=== PATIENT | female | born 1945 | race Caucasian/White ===

== ENCOUNTER 2017-04-24 05:01 | Emergency (ER) | payer MEDICARE, OTHER ==
[~2017-04-24] VITALS: Ht 162.6 cm; Wt 74.8 kg
[~2017-04-24 05:01] MED LIST: ADVAIR 250-501 EACH PO; ALBUTEROL SULF8.5 GM PO; ASPIRIN325 MG PO; CARDIZEM30 MG PO; CEFUROXIME250 MG PO; CILOSTAZOL100 MG PO; CRESTOR20 MG PO; GABAPENTIN300 MG PO; GABAPENTIN600 MG PO; GLIPIZIDE-METF1 EAC2 PO; GLIPIZIDE5 MG PO; HYDROCHLOROTHIA25 MG PO; LANTUS100 UNITS/ SC; LIPITOR20 MG PO; LISINOPRIL40 MG PO; METOPROLOL TART25 MG PO; PENICILLIN V P250 MG PO; PLAVIX75 MG PO; PROCARDIA XL30 MG PO; SINGULAIR10 MG PO; TYLENOL WITH C1 EACH PO; VITAMIN D1000 UNIT PO; XOPENEX1.25 MG/3 HHN
[2017-04-24] MEDS ORDERED: DEXTROSE 50% SYRINGE 50 ML IV ONE (05:17)
[2017-04-24] MEDS ORDERED: DEXTROSE 10% 1,000 ML IV ONE (06:15)
[2017-04-24] MEDS ORDERED: OCTREOTIDE ACETATE 0.05 MG/ML AMP SQ SCH ×2 (06:15→12:00)
[2017-04-24] MEDS ORDERED: OCTREOTIDE ACETATE 1 ML ONE (06:22)
[2017-04-24 06:54] LABS: BASOPHILS % 0.4 % (0.0-1.0); EOSINOPHILS # (AUTO) 0.1 (0.0-0.4); EOSINOPHILS % 0.8 % (0.0-6.0); HEMATOCRIT 39.3 % (34.2-44.1); LYMPHOCYTES # (AUTO) 1.6 (1.0-3.2); LYMPHOCYTES % 13.8 % (18.0-39.1); MEAN CORPUSCULAR HGB CONC 30.5 g/dL (31-35); MEAN CORPUSCULAR VOLUME 88.5 fL (81-99); MONOCYTES # (AUTO) 0.8 (0.2-0.8); NEUTROPHILS # (AUTO) 8.7 (2.1-6.9); NEUTROPHILS % 77.4 % (38.7-80.0); PLATELET COUNT 210 x10e3/uL (140-360); RED BLOOD COUNT 4.44 x10e6/uL (3.6-5.1); RED CELL DISTRIBUTION WIDTH 14.6 % (11.7-14.4)
[2017-04-24 06:58] LABS: INR 0.93; PROTHROMBIN TIME 12.9 seconds (11.9-14.5)
[2017-04-24 06:59] LABS: PARTIAL THROMBOPLASTIN TIME 34.2 seconds (23.8-35.5)
[2017-04-24 07:04] LABS: ALBUMIN 3.2 g/dL (3.5-5.0); ALBUMIN/GLOBULIN RATIO 0.8 (0.8-2.0); ANION GAP 13.2 mmol/L (8-16); CALCIUM 8.6 mg/dL (8.4-10.2); CREATININE, SERUM 0.95 mg/dL (0.57-1.11); MAGNESIUM 1.8 MG/DL (1.3-2.1); POTASSIUM 4.2 mmol/L (3.5-5.1)
[2017-04-24] MEDS ORDERED: SODIUM CHLORIDE 0.9% 1000ML 1,000 ML IV ONE (07:15)
[2017-04-24 07:23] LABS: CREATINE KINASE MB 2.3 ng/mL (0.00-5.00); THYROID STIMULATING HORMONE 2.063 uIU/mL (0.350-4.940)
--- NOTE | 2017-04-24 07:32 | Diagnostic Imaging Report ---
Exam: Head CT without contrast History: Altered mental status, hypoglycemia Comparison studies: Head CT 03/25/2015 Technique: Axial images were obtained from the skull base to the vertex. Coronal and sagittal images reconstructed from the axial data. Intravenous contrast: None Findings: Scalp: No abnormalities. Bones: No fractures, blastic or lytic lesions. Sac: Frontal and parietal sulci are mildly prominent. Ventricles: Normal in size and configuration. No hydrocephalus. Extra-axial spaces: No masses, no fluid collection. Parenchyma: No mass, acute hemorrhage or acute or chronic cortical vascular insults. A few scattered hypodensities in the supratentorial white matter are nonspecific but most compatible with chronic small vessel ischemic changes. Sellar/suprasellar region: No abnormalities. Craniocervical junction: Patent foramen magnum. No Chiari one malformation. Incidental findings: Atherosclerotic calcifications in the carotid siphons and intradural vertebral arteries. Small nonspecific frothy secretions within a partially imaged posterior right ethmoid air cell. Mild nonspecific mucosal thickening in the left sphenoid sinus. IMPRESSION: 1. No acute intracranial abnormalities. 2. Mild chronic microvascular ischemic changes. 3. No significant changes from the previous head CT of 03/25/2015. Signed by: Dr. Luis Higgins M.D. on 04/24/2017 7:28 AM
[2017-04-24 07:59] LABS: BILIRUBIN,URINE NEGATIVE (NEGATIVE); KETONES,URINE NEGATIVE (NEGATIVE); LEUKOCYTE ESTERASE ,URINE NEGATIVE (NEGATIVE); NITRITE,URINE NEGATIVE (NEGATIVE); URINE UROBILINOGEN 0.2 mg/dL (0.2 - 1)
[2017-04-24 08:04] LABS: CLARITY,URINE SL CLOUDY (CLEAR); COLOR,URINE YELLOW (YELLOW); PROTEIN,URINE DIPSTICK 1+ (NEGATIVE)
--- NOTE | 2017-04-24 08:08 | Diagnostic Imaging Report ---
PROCEDURE: CHEST SINGLE (PORTABLE) COMPARISON: [facility], DX, CHEST SINGLE (NOT PORTABLE), 07/19/2016, 11:49. INDICATIONS: AMS; LOW BLOOD SUGAR FINDINGS: LUNGS: No consolidations or edema. PLEURA: No effusions or pneumothorax. HEART \T\ MEDIASTINUM: The heart is within normal size-limits. There is calcification within the aorta. BONES \T\ SOFT TISSUES: No acute findings. Sternotomy wire sutures are intact. [place] screw overlying the right humeral head. CONCLUSION: No acute thoracic abnormality. Jovan Jose D.O. Dictated by: Jovan Jose D.O. on 04/24/2017 at 8:17 Electronically approved by: Jovan Jose D.O. on 04/24/2017 at 8:17
[2017-04-24 08:39] LABS: EPITHELIAL CELLS,URINE RARE /LPF
[2017-04-24] MEDS ORDERED: SODIUM CHLORIDE 0.9% 1000ML 1,000 ML IV SCH (08:48)
[2017-04-24] MEDS ORDERED: DEXTROSE 50% SYRINGE 50 ML IV PRN (09:00)
[2017-04-24] MEDS ORDERED: CEFTRIAXONE SOD 1 GM VIAL IV SCH ×2 (09:00)
[2017-04-24] MEDS: CEFTRIAXONE SOD 1 GM VIAL IV SCH ×2 (11:22→12:00)
[2017-04-24] MEDS ORDERED: INSULIN REGULAR, HUMAN 100 UNIT/1 ML 3ML VIAL SQ SCH (11:30)
[2017-04-24] MEDS ORDERED: ACETAMINOPHEN 325 MG TAB PO PRN ×2 (11:30→11:45)
[2017-04-24] MEDS ORDERED: PEPCID20 MG PO (18:57)
[2017-04-24] MEDS ORDERED: REGLAN10 MG PO (18:57)
[2017-04-24] MEDS ORDERED: METOPROLOL TARTRATE 25 MG TAB PO SCH (19:00)
[2017-04-24 19:26] VITALS: BP 147/88
--- NOTE | 2017-04-24 20:40 | History and Physical ---
SHORTSTAY SUMMARY The patient goes to the [facility]. CHIEF COMPLAINT: 1. Decreased level of consciousness due to hypoglycemia. 2. Type 2 diabetes with hypoglycemia. 3. Hypertension complicated by coronary artery disease and congestive heart failure and chronic kidney disease. 4. Type 2 diabetes complicated by chronic kidney disease. 5. Urinary tract infection. DISCHARGE DIAGNOSES 1. Decreased level of consciousness due to hypoglycemia. 2. Type 2 diabetes with hypoglycemia. 3. Hypertension complicated by coronary artery disease and congestive heart failure and chronic kidney disease. 4. Type 2 diabetes complicated by chronic kidney disease. 5. Urinary tract infection. BRIEF HISTORY: Ms. Jacob is a 71-year-old lady who was brought in by EMS for altered level of consciousness because her his blood sugar was 38. She was given D50 which brought her sugar up into the 100/s, but had started to drop again and she was started on D5 water drip and her blood sugar was monitored q.1 hour. After the blood sugar had been above 250 for 2 consecutive hours, the D5 was discontinued. She continued to have blood sugar checks and her blood sugar remained stable through the rest of the day. REVIEW OF SYSTEMS: She denies fever, chills or weight loss. She denies chest pain or palpitations. She denies shortness of breath, wheezing or cough. Denies abdominal pain, although she does have some GERD symptoms and nausea and decreased appetite, possibly due to gastroparesis. She has dysuria, but denies flank pain. She denies rash or pruritus. She denies bleeding or bruising. Denies joint pain or swelling. She denies headache, vertigo or loss of consciousness. She denies depression, agitation, homicidal or suicide ideation. She has a chronic nonproductive cough from smoking. PAST MEDICAL HISTORY: Significant for longstanding hypertension, type 2 diabetes, coronary artery disease, congestive heart failure, chronic kidney disease. She had a CABG done in 1993. She also has a history of cholecystectomy, hysterectomy and appendectomy. REGULAR MEDICATIONS: Tylenol with codeine as needed. Albuterol inhaler as needed. Lipitor 80 mg at bedtime. Cilostazol 100 mg twice daily. Plavix 75 mg daily. Advair Diskus twice a day inhalation. Lantus insulin 20 units twice a day. Xopenex inhaler as needed. Metoprolol 25 mg twice a day. Singulair 10 mg at bedtime. Nifedipine XL 60 mg daily. Gabapentin 600 mg twice daily and glipizide/metformin 5/500 twice daily. ALLERGIES: NO KNOWN DRUG ALLERGIES. SOCIAL HISTORY: She is a current daily smoker. FAMILY HISTORY: Remarkable for hypertension, diabetes and heart disease. SOCIAL HISTORY: The patient is . Divehi is her primary language. She is a current daily smoker. She drinks very rarely. She does not use illegal drugs. She is generally independently functioning. PHYSICAL EXAM: PSYCHIATRIC: She is alert and oriented times 3 with normal mood and affect. CONSTITUTIONAL: She is moderately overweight. BMI of 28.31, but not obese. She is in no acute distress. VITAL SIGNS: Blood pressure 136/60. Pulse 97 and regular. Respiratory rate 22. O2 sat 99%. Temperature 98.6. HEENT: Head is atraumatic. Eyes are anicteric with clear conjunctivae. Ears and nares are without erythema or discharge. Oropharynx is clear. NECK: Is supple with no mass or thyromegaly. LYMPHATIC SYSTEM: She has no palpable cervical, axillary or inguinal adenopathy. CARDIOVASCULAR: Her heart has a regular rate and rhythm without murmur or extra heart sound. She has no carotid bruit. She has no peripheral edema. Has weak dorsal pedal pulses. RESPIRATORY: Her lungs revealed diminished breath sounds, coarse airway noise and expiratory wheezing. She has normal respiratory effort and a chronic, hacking, nonproductive cough. GASTROINTESTINAL: Abdomen is soft without organomegaly, masses or tenderness. Normal bowel sounds present. CUTANEOUS: His skin is warm and dry to touch with no rash or skin breakdown. MUSCULOSKELETAL: Joints are in normal alignment without erythema or swelling. She has no calf tenderness. NEUROLOGIC: Exam is nonfocal with intact cranial nerves and no motor or sensory deficits. DIAGNOSTIC STUDIES: Chest x-ray shows no acute disease. CT scan of brain shows no acute disease. Does show some mild chronic microvascular changes. UA is clear, partially treated apparently. Her lactic acid is 21.7 which is elevated. Chemistry shows normal electrolytes. CO2 24. Creatinine 0.95. BUN 18 for a normal GFR. Glucose was 38 on arrival. Subsequent glucoses 133, 132, 130, then 303, 264. The D5W was stopped and the last blood sugar was 160. She has been on low-dose sliding scale insulin for the last dose. Transaminases, bilirubin and alkaline phos are normal. CBC shows a white count 11.2 with 77.4 neutrophils, hemoglobin 12.0, hematocrit 38.3, platelet count 210,000. Coags are normal. IMPRESSION AND PLAN 1. Hypoglycemia, type 2 diabetes. The patient has not been checking her blood sugar regularly and continues to take Lantus insulin twice a day and has had poor appetite and p.o. intake lately due to what sounds like reflux and gastroparesis. The patient was instructed to check her sugar twice a day before Lantus injections and to not given any insulin if her blood sugar is less than 120. 2. Urinary tract infection. Patient has been on Levaquin which is not recommended by the CDC. Will switch to cefuroxime 500 mg twice daily. HOSPITAL COURSE: The patient was admitted for observation and she received D5 water until her low blood sugar stabilized. She was instructed on checking her blood sugar regularly and holding her insulin for sugars that are less than 120. She was discharged home to continue all of her regular home medications. She will be given cefuroxime 500 mg twice daily for the urinary tract infection to replace Levaquin, and she will be given Pepcid and Reglan 20 mg and 10 mg both twice a day before meals for gastroparesis and to improve her appetite. She can resume regular activity and follow up with her primary care physician within 2 weeks. Job#: [id number]
== END 2017-04-24 20:21 | disposition home or self-care (01) ==
LOC: ER 05:01 → UNDOADMIN 09:11 → ERHOLD 09:11
DX: E11.649 Type 2 diabetes mellitus with hypoglycemia without coma (principal); Z79.4 Long term (current) use of insulin; N39.0 Urinary tract infection, site not specified; I10 Essential (primary) hypertension
CPT/HCPCS: 36415; 70450; 71045; 80053; 81001; 82550; 82553; 82948; 83605; 83690; 83735; 84443; 84484; 85025; 85610; 85730; 87040; 87071; 87086; 87186; 87205; 93005; 96374; 99284; J0696; J2353; J2354; J7030; J7799

== ENCOUNTER 2018-11-10 14:11 | Inpatient (IN) | payer MEDICARE, OTHER ==
[~2018-11-10] VITALS: Ht 162.6 cm; Wt 74.8 kg
[~2018-11-10 14:11] MED LIST changes: +PEPCID20 MG PO; +REGLAN10 MG PO
--- OUTSIDE RECORDS SUMMARY | 2018-11-10 14:14 | XMS REPORT | Clinical Summary ---
Author Author SURI CinnaBid Organization [facility] [employer] [facility] Address Unknown Phone Unavailable Care Team Providers Care [employer]er Name Role Phone Peter Bob [place] PCP Allergies No Known Allergies Medications End Date Status Medication Sig Dispensed Refills Start Date Active atorvastatin (LIPITOR) 80 Take 80 mg by 0 MG tablet mouth daily. Active cholecalciferol, vitamin Take by 0 D3, 2,000 unit Cap mouth. Active clopidogrel (PLAVIX) 75 Take 75 mg by 0 mg tablet mouth daily. Active fluticasone-salmeterol Inhale 1 puff 0 (ADVAIR) 250-50 mcg/dose by mouth via diskus inhaler inhaler every 12 (twelve) hours. Active gabapentin (NEURONTIN) Take 600 mg 0 300 MG capsule by mouth 2 (two) times daily . Active glipiZIDE-metFORMIN Take 2 0 (METAGLIP) 5-500 mg per tablets by tablet mouth 2 (two) times daily before meals. Active montelukast (SINGULAIR) Take 10 mg by 0 10 mg tablet mouth nightly. Active insulin detemir U-100 Inject 20 0 (LEVEMIR) 100 unit/mL Units injection subcutaneousl y nightly. Active busPIRone (BUSPAR) 10 MG Take 10 mg by 0 tablet mouth daily . 07/03/2019 Active aspirin 81 MG EC tablet Take 1 tablet 0 (81 mg total) 9 by mouth daily. 07/03/2019 Active furosemide (LASIX) 40 MG Take 1 tablet 180 tablet 3 tablet (40 mg total) 9 by mouth 2 (two) times daily. 07/03/2019 Active lisinopril Take 1 tablet 90 tablet 3 (PRINIVIL,ZESTRIL) 5 MG (5 mg total) 9 tablet by mouth daily. Active metoprolol (LOPRESSOR) 25 Take 12.5 mg 0 MG tablet by mouth 2 (two) times daily. Active albuterol HFA (VENTOLIN Inhale 1 puff 0 HFA) 90 mcg/actuation by mouth via inhaler inhaler as needed for Wheezing. 06/30/2018 Discontinued ascorbic acid, vitamin C, Take 500 mg 0 (ASCORBIC ACID WITH LATISHA by mouth HIPS) 500 MG tablet daily. 07/02/2018 Discontinued aspirin 325 MG EC tablet Take 325 mg 0 by mouth daily. 07/02/2018 Discontinued cilostazol (PLETAL) 50 MG Take 50 mg by 0 tablet mouth 2 (two) times daily. 06/30/2018 Discontinued insulin glargine (LANTUS) Inject 20 0 100 unit/mL injection Units subcutaneousl y 2 (two) times daily Use as directed . 06/30/2018 Discontinued levalbuterol (XOPENEX) Take 1 ampule 0 1.25 mg/3 mL nebulizer by solution nebulization every 4 (four) hours as needed for Wheezing. 06/30/2018 Discontinued lidocaine (LIDODERM) 5 % Place 1 patch 0 patch onto the skin daily Remove & Discard patch within 12 hours or as directed by MD . 06/30/2018 Discontinued metoprolol (TOPROL-XL) 25 Take 25 mg by 0 MG 24 hr tablet mouth daily. 06/30/2018 Discontinued omega-3 fatty Take by 0 acids-vitamin E 1,000 mg mouth. Cap 07/02/2018 Discontinued gabapentin (NEURONTIN) Take 300 mg 0 300 MG capsule by mouth daily with lunch . 07/02/2018 Discontinued metoprolol (LOPRESSOR) 25 Take 25 mg by 0 MG tablet mouth 2 (two) times daily. 10/26/2018 Discontinued nebivolol (BYSTOLIC) 2.5 Take 1 tablet 30 tablet 0 201 MG tablet (2.5 mg 9 total) by mouth daily. Active Problems Problem Noted Date CAD (coronary artery disease) 10/26/2018 Family history of premature CAD 10/26/2018 Chest pain, unspecified type 09/19/2018 Acute on chronic systolic heart failure 06/30/2018 COPD (chronic obstructive pulmonary disease) 06/30/2018 Chronic respiratory failure 06/30/2018 Smoker 06/30/2018 Abdominal aortic aneurysm (AAA) without rupture 06/30/2018 Hyponatremia 06/30/2018 Episode of confusion. multifactorial (hypoglycemia, stress). resolved 06/29/2018 Encounters Care Team Description Date Type Specialty Kaylah Cohen MD CORONARY ANGIOS / PCI / STENT 10/26/2018 Surgery Kaylah Cohen MD 10/26/2018 Hospital Encounter Kaylah Cohen MD 10/25/2018 Orders Only Cardiology 09/20/2018 Travel Mark Hodges MD Hite, Wayne K., DO Chest pain, unspecified type (Primary Dx); Paresthesia 09/19/2018 Emergency General Internal Medicine - 09/20/2018 09/19/2018 Orders Only General Internal Medicine Tierney Villasenor MD Dang, Thai Duc, MD Episode of confusion (Primary Dx); Weakness generalized; Acute on chronic congestive heart failure, unspecified heart failure type (HCC); Elevated troponin 06/29/2018 Hospital Cardiology - Encounter 07/02/2018 06/29/2018 Orders Only General Internal Medicine 06/29/2018 Travel after 11/09/2017 Social History Date Tobacco Use Types Packs/Day Years Used Current Some Day Smoker 1 Smokeless Tobacco: Never Used Alcohol Use Drinks/Week oz/Week Comments No Sex Assigned at Date Recorded Not on file Industry Job Start Date Occupation Not on file Not on file Not on file Travel End Travel History Travel Start No recent travel history available. Last Filed Vital Signs Time Taken Vital Sign Reading 10/26/2018 6:00 PM CDT Blood Pressure 141/65 10/26/2018 6:00 PM CDT Pulse 85 10/26/2018 6:26 AM CDT Temperature 36.5 C (97.7 F) 10/26/2018 6:00 PM CDT Respiratory Rate 16 10/26/2018 1:00 PM CDT Oxygen Saturation 95% 07/01/2018 8:02 PM CDT Inhaled Oxygen 21% Concentration 10/26/2018 6:26 AM CDT Weight 71.2 kg (157 lb) 10/26/2018 6:26 AM CDT Height 162.6 cm (5' 4") 10/26/2018 6:26 AM CDT Body Mass Index 26.95 Plan of Treatment Not on file Procedures Comments Procedure Name Priority Date/Time Associated Diagnosis VASCULAR DIAGRAM -SCAN 11/07/2018 5:21 PM CDT REPORT OF PROCEDURE - 10/29/2018 ENDOSCOPY SCAN 3:20 PM CDT CARDIAC CATH REPORT - 10/29/2018 SCAN 3:20 PM CDT CARDIAC CATH REPORT - 10/29/2018 SCAN 3:20 PM CDT VASCULAR DIAGRAM -SCAN 10/29/2018 3:20 PM CDT POCT-ACT Routine 10/26/2018 11:52 AM CDT PERIPHERAL ANGIOS & IVUS 10/26/2018 Atherosclerosis of [place] 9:45 AM CDT coronary artery of [place] heart without angina pectoris PAD (peripheral artery disease) (HCC) Case Notes (2)case POP6 CORONARY ANGIOS / PCI / 10/26/2018 Atherosclerosis of [place] STENT 9:45 AM CDT coronary artery of [place] heart without angina pectoris PAD (peripheral artery disease) (HCC) Case Notes (2)case POP6 RHYTHM STRIP - SCAN 09/25/2018 1:30 PM CDT REPORT OF PROCEDURE - 09/25/2018 ENDOSCOPY SCAN 1:30 PM CDT CBC W/PLT COUNT & AUTO Routine 09/20/2018 DIFFERENTIAL 4:05 AM CDT CBC W/PLT COUNT & AUTO Routine 09/20/2018 DIFFERENTIAL 4:05 AM CDT HEMOGLOBIN A1C Routine 09/20/2018 4:05 AM CDT MAGNESIUM Routine 09/20/2018 4:05 AM CDT PHOSPHORUS Routine 09/20/2018 4:05 AM CDT BASIC METABOLIC PANEL (7) Routine 09/20/2018 4:05 AM CDT TROPONIN I STAT 09/20/2018 4:05 AM CDT VITAMIN D, 25-HYDROXY Routine 09/20/2018 4:05 AM CDT POCT-GLUCOSE METER Routine 09/19/2018 6:26 PM CDT POCT-GLUCOSE METER Routine 09/19/2018 5:59 PM CDT TROPONIN I STAT 09/19/2018 5:59 PM CDT XR CHEST 1 VIEW STAT 09/19/2018 PORTABLE/BEDSIDE 10:[address] BRAIN WITHOUT IV STAT 09/19/2018 CONTRAST 10:18 AM CDT CBC W/PLT COUNT & AUTO STAT 09/19/2018 DIFFERENTIAL 10:01 AM CDT TROPONIN I STAT 09/19/2018 10:01 AM CDT BASIC METABOLIC PANEL (7) STAT 09/19/2018 10:01 AM CDT HEPATIC FUNCTION PANEL STAT 09/19/2018 10:01 AM CDT MAGNESIUM STAT 09/19/2018 10:01 AM CDT CBC W/PLT COUNT & AUTO STAT 09/19/2018 DIFFERENTIAL 10:01 AM CDT ED ECG INTERPRETATION Routine 09/19/2018 9:40 AM CDT ECG 12-LEAD Routine 09/19/2018 9:37 AM CDT Procedure Note - Interface, External Ris In - 09/19/2018 4:24 PM CDT Ventricula r Rate 90 BPM Atrial Rate 90 BPM P-R Interval 158 ms QRS Duration 74 ms Q-T Interval 348 ms QTC Calculatio n(Bazett) 425 ms P [place] 75 degrees R [place] 62 degrees T [place] 92 degrees Normal sinus rhythm Nonspecifi c ST and T wave abnormalit y Abnormal ECG When compared with ECG of 9 20:23, Questionab le change in QRS axis ECG 12-LEAD STAT 09/19/2018 9:37 AM CDT RHYTHM STRIP - SCAN 07/04/2018 1:30 PM CDT REPORT OF PROCEDURE - 07/04/2018 ENDOSCOPY SCAN 1:30 PM CDT PERIPHERAL VASCULAR 07/02/2018 REPORT - SCAN 9:10 PM CDT POCT-GLUCOSE METER Routine 07/02/2018 8:56 PM CDT POCT-GLUCOSE METER Routine 07/02/2018 6:14 PM CDT 2D ECHO W/ DOPPLER Routine 07/02/2018 (CW/PW/COLOR) 3:54 PM CDT POCT-GLUCOSE METER Routine 07/02/2018 12:[address] BRAIN WITHOUT IV STAT 07/02/2018 CONTRAST 8:58 AM CDT POCT-GLUCOSE METER Routine 07/02/2018 8:19 AM CDT BASIC METABOLIC PANEL (7) Routine 07/02/2018 4:51 AM CDT MAGNESIUM Routine 07/02/2018 4:51 AM CDT VENOUS DOPPLER LEGS Routine 07/01/2018 BILATERAL 10:16 PM CDT POCT-GLUCOSE METER Routine 07/01/2018 8:47 PM CDT POCT-GLUCOSE METER Routine 07/01/2018 5:32 PM CDT POCT-GLUCOSE METER Routine 07/01/2018 11:54 AM CDT POCT-GLUCOSE METER Routine 07/01/2018 8:00 AM CDT BASIC METABOLIC PANEL (7) Routine 07/01/2018 5:06 AM CDT POCT-GLUCOSE METER Routine 06/30/2018 8:50 PM CDT POCT-GLUCOSE METER Routine 06/30/2018 4:29 PM CDT TROPONIN I Routine 06/30/2018 11:55 AM CDT TROPONIN I Routine 06/30/2018 4:57 AM CDT TSH/FREE T4 IF INDICATED Routine 06/30/2018 4:57 AM CDT BASIC METABOLIC PANEL (7) Routine 06/30/2018 4:57 AM CDT POCT-GLUCOSE METER Routine 06/29/2018 11:51 PM CDT POTASSIUM STAT 06/29/2018 11:12 PM CDT B-TYPE NATRIURETIC FACTOR STAT 06/29/2018 (BNP) 11:12 PM CDT ED ECG INTERPRETATION Routine 06/29/2018 9:47 PM CDT XR CHEST 1 VIEW STAT 06/29/2018 PORTABLE/BEDSIDE 9:[address] BRAIN WITHOUT IV STAT 06/29/2018 CONTRAST 9:21 PM CDT CBC W/PLT COUNT & AUTO STAT 06/29/2018 DIFFERENTIAL 9:00 PM CDT CBC W/PLT COUNT & AUTO STAT 06/29/2018 DIFFERENTIAL 9:00 PM CDT HEPATIC FUNCTION PANEL STAT 06/29/2018 9:00 PM CDT TROPONIN I STAT 06/29/2018 9:00 PM CDT PHOSPHORUS STAT 06/29/2018 9:00 PM CDT MAGNESIUM STAT 06/29/2018 9:00 PM CDT BASIC METABOLIC PANEL (7) STAT 06/29/2018 9:00 PM CDT ECG 12-LEAD STAT 06/29/2018 8:23 PM CDT after 11/09/2017 Results * VASCULAR DIAGRAM -SCAN (11/07/2018 5:21 PM CDT) Only the most recent of 2 results within the time period is included. Narrative Performed At * EKG-SCANNED (10/29/2018 3:20 PM CDT) Only the most recent of 3 results within the time period is included. Narrative Performed At * CARDIAC CATH REPORT - SCAN (10/29/2018 3:20 PM CDT) Narrative Performed At * CARDIAC CATH REPORT - SCAN (10/29/2018 3:20 PM CDT) Narrative Performed At * POC ACTIVATED CLOTTING TIME (10/26/2018 11:52 AM CDT) Activated Clotting Time 142Comment: TESTED AT [facility] sec [facility] [address] [id number] [facility] Specimen Blood Performing Organization Address City/State/Zipcode Phone Number [address] [phone] [facility] * RHYTHM STRIP - SCAN (09/25/2018 1:30 PM CDT) Only the most recent of 2 results within the time period is included. Narrative Performed At * CBC with platelet count + automated diff (09/20/2018 4:05 AM CDT) Only the most recent of 3 results within the time period is included. WBC 7.9 3.5 - 10.5 K/L [facility] RBC 4.40 3.93 - 5.22 M/L [facility] Hemoglobin 11.8 11.2 - 15.7 GM/DL [facility] Hematocrit 38.0 34.1 - 44.9 % [facility] MCV 86.4 79.4 - 94.8 fL [facility] MCH 26.8 25.6 - 32.2 pg [facility] MCHC 31.1 (L) 32.2 - 35.5 GM/DL [facility] RDW 15.2 (H) 11.7 - 14.4 % [facility] Platelets 196 150 - 450 K/CU MM [facility] MPV 10.1 9.4 - 12.3 fL [facility] nRBC 0 0 - 0 /100 WBC [facility] % Neutros 63 % [facility] % Lymphs 22 % [facility] % Monos 11 % [facility] % Eos 3 % [facility] % Baso 1 % [facility] # Neutros 4.99 1.56 - 6.13 K/L [facility] # Lymphs 1.76 1.18 - 3.74 K/L [facility] # Monos 0.83 (H) 0.24 - 0.36 K/L [facility] # Eos 0.25 0.04 - 0.36 K/L [facility] # Baso 0.06 0.01 - 0.08 K/L [facility] Immature 0 0 - 1 % [facility] Granulocytes-[facility] Specimen Blood Performing Organization Address City/[facility]/[place] [address] [facility] * Troponin I (09/20/2018 4:05 AM CDT) Only the most recent of 6 results within the time period is included. Troponin I <0.01 0.00 - 0.03 ng/mL [facility] Specimen Blood Narrative Performed At Troponin I (TnI) levels must be interpreted in the context of the presenting [facility] symptoms and the clinical findings. Elevated TnI levels indicate myocardial [facility] damage, but are not specific for ischemic heart disease. Elevated TnI levels are seen in patients with other cardiac conditions (including myocarditis and congestive heart failure), and slight TnI elevations occur in patients with other conditions, including sepsis, renal failure, acidosis, acute neurological disease, and persistent tachyarrhythmia. Performing Organization Address City/[facility]/Zipcode Phone Number [address] [address] [facility] * Vitamin D, 25-Hydroxy (09/20/2018 4:05 AM CDT) Vitamin D 25-Hydroxy 12.5 6.6 - 49.9 ng/mL [facility] Specimen Blood Narrative Performed At Effective 01/04/2017: Reference Range Change [facility] New: 6.6-49.9 ng/mL Previous: 13.0-47.8 ng/mL [facility] Recommended Vitamin D Target Range: 30.0-40.0 ng/mL Performing Organization Address City[facility] Phone Number [address] * Phosphorus (09/20/2018 4:05 AM CDT) Only the most recent of 2 results within the time period is included. Phosphorus 4.0 2.3 - 4.7 mg/dL [facility] Specimen Blood Performing Organization Address [facility] Phone Number [address] * Magnesium (09/20/2018 4:05 AM CDT) Only the most recent of 4 results within the time period is included. Magnesium 1.8 1.6 - 2.6 mg/dL [facility] Specimen Blood Performing Organization Address [facility] Phone Number [address] * Hemoglobin A1c (09/20/2018 4:05 AM CDT) Hemoglobin A1C 6.5 (H) 4.3 - 6.1 % [facility] Specimen Blood Performing Organization Address City/[facility] [place] [place] [phone] [place] [address] * Basic metabolic panel (09/20/2018 4:05 AM CDT) Only the most recent of 6 results within the time period is included. Sodium 134 (L) 136 - 145 meq/L [facility] Potassium 4.6 3.5 - 5.1 meq/L [facility] Chloride 95 (L) 98 - 107 meq/L [facility] CO2 30 (H) 22 - 29 meq/L [facility] BUN 24 (H) 7 - 21 mg/dL [facility] Creatinine 0.99 0.57 - 1.25 mg/dL [facility] Glucose 167 (H) 70 - 105 mg/dL [facility] Calcium 9.3 8.4 - 10.2 mg/dL [facility] EGFR 55Comment: ESTIMATED GFR IS mL/min/1.73 sq m [facility] NOT ACCURATE CREATININE [facility] CLEARANCE IN PREDICTING GLOMERULAR FILTRATION RATE. ESTIMATED GFR IS NOT APPLICABLE FOR DIALYSIS PATIENTS. Specimen Blood Performing Organization Address City/State/Zipcode Phone Number [phone] [place] [phone] * POC-Glucose meter (09/19/2018 6:26 PM CDT) Only the most recent of 13 results within the time period is included. POC-Glucose Meter 119 (H)Comment: TESTED AT 70 - 110 mg/dL [address] [address] Specimen Blood Performing Organization Address City/State/Zipcode Phone Number [phone] [place] [address] [phone] * XR chest 1 view portable / bedside (09/19/2018 10:26 AM CDT) Only the most recent of 2 results within the time period is included. Specimen Narrative Performed At FINAL REPORT [facility] CLINICAL HISTORY: CHEST PAIN NUMBNESS TECHNIQUE: 1 view of the chest. COMPARISON: 06/29/2018 IMPRESSION: The chin partially obscures the lung apices, but there is no visualized lobar consolidation. There is bibasilar atelectasis with blunting of both costophrenic angles. The cardiomediastinal silhouette is magnified by technique with sternotomy wires. Right humeral suture anchors are again noted. Signed: Sarah Cook MD Report Verified Date/Time:09/19/2018 11:01:26 Reading Location: [facility] Radiology Reading Room Procedure Note Interface, External Ris In - 09/19/2018 11:03 AM CDT FINAL REPORT CLINICAL HISTORY: CHEST PAIN NUMBNESS TECHNIQUE: 1 view of the chest. COMPARISON: 06/29/2018 IMPRESSION: The chin partially obscures the lung apices, but there is no visualized lobar consolidation. There is bibasilar atelectasis with blunting of both costophrenic angles. The cardiomediastinal silhouette is magnified by technique with sternotomy wires. Right humeral suture anchors are again noted. Signed: Sarah Cook MD Report Verified Date/Time: 09/19/2018 11:01:26 Reading Location: [facility] Radiology Reading Room Performing Organization Address City/State/Zipcode Phone Number [place] * CT brain without IV contrast (09/19/2018 10:18 AM CDT) Only the most recent of 3 results within the time period is included. Specimen Narrative Performed At FINAL REPORT [facility] CT, BRAIN, WITHOUT CONTRAST INDICATION: Paralysis / Paresthesia, facial CHEST PAIN NUMBNESS TECHNIQUE: Noncontrast axial imaging was obtained from the vertex to the skull base. Axial images were reconstructed using a bone algorithm. DOSE REDUCTION: Dose modulation, iterative reconstruction, and/or weight-based adjustment of the mA/kV was utilized to reduce the radiation dose to as low as reasonably achievable. COMPARISON: July 02, 2018 FINDINGS: Cerebral parenchyma: Diffuse parenchymal volume loss. No recent infarct or hemorrhage. Midline structures: Normally positioned. Cerebellum and brainstem: Commensurate volume loss. Ventricles: Normal volume. Extra-axial spaces: Unremarkable. Calvarium and skull base: Intact. Paranasal sinuses and mastoid air cells: Visible chambers are clear. Orbital contents: Included portions unremarkable. Additional findings: None. IMPRESSION: Chronic involutional changes without acute intracranial abnormality. If there is persistent clinical concern for intracranial pathology, MR examination is recommended for further characterization. Signed: JR Louie Robert MD Report Verified Date/Time:09/19/2018 10:21:30 Reading Location: [facility] B1 [id number] Neuro Reading Room Procedure Note Interface, External Ris In - 09/19/2018 10:23 AM CDT FINAL REPORT CT, BRAIN, WITHOUT CONTRAST INDICATION: Paralysis / Paresthesia, facial CHEST PAIN NUMBNESS TECHNIQUE: Noncontrast axial imaging was obtained from the vertex to the skull base. Axial images were reconstructed using a bone algorithm. DOSE REDUCTION: Dose modulation, iterative reconstruction, and/or weight-based adjustment of the mA/kV was utilized to reduce the radiation dose to as low as reasonably achievable. COMPARISON: July 02, 2018 FINDINGS: Cerebral parenchyma: Diffuse parenchymal volume loss. No recent infarct or hemorrhage. Midline structures: Normally positioned. Cerebellum and brainstem: Commensurate volume loss. Ventricles: Normal volume. Extra-axial spaces: Unremarkable. Calvarium and skull base: Intact. Paranasal sinuses and mastoid air cells: Visible chambers are clear. Orbital contents: Included portions unremarkable. Additional findings: None. IMPRESSION: Chronic involutional changes without acute intracranial abnormality. If there is persistent clinical concern for intracranial pathology, MR examination is recommended for further characterization. Signed: JR Louie Robert MD Report Verified Date/Time: 09/19/2018 10:21:30 Reading Location: [address] Neuro Reading Room Performing Organization Address City/State/Zipcode Phone Number [facility] * Hepatic function panel (09/19/2018 10:01 AM CDT) Only the most recent of 2 results within the time period is included. Protein, Total 7.5 6.0 - 8.3 gm/dL [facility] Albumin 3.8 3.5 - 5.0 g/dL [facility] Total Bilirubin 0.5 0.2 - 1.2 mg/dL [facility] Bilirubin, Direct 0.3 0.1 - 0.5 mg/dL [facility] Alkaline Phosphatase 161 (H) 40 - 150 U/L [facility] AST 21 5 - 34 U/L [facility] ALT 15 6 - 55 U/L [facility] Specimen Blood Performing Organization Address City/State/Zipcode Phone Number [facility] [address] [place] [address] [facility] * ECG/EKG Interpretation (09/19/2018 9:40 AM CDT) Only the most recent of 2 results within the time period is included. Narrative Performed At Mark Hodges MD 09/19/20189:57 AM ECG/EKG Interpretation Date/Time: 09/19/2018 9:56 AM Performed by: Mark Hodges MD Authorized by: Mark Hodges MD The ECG was interpreted by ED physician. This ECG was compared with previous ECG(s).The ECG is interpreted as sinus rhythm. Rate is normal rate. Clinical Impression: non-specific ECGComments: No sig change when c/w June ekg - most recent available ekg for comparison * ECG 12 lead (09/19/2018 9:37 AM CDT) Only the most recent of 2 results within the time period is included. Specimen Narrative Performed At Ventricular Rate 90 BPM [facility] MUSE Atrial Rate 90 BPM P-R Interval 158 ms QRS Duration 74 ms Q-T Interval 348 ms QTC Calculation(Bazett) 425 ms P [place] 75 degrees R [place] 62 degrees T [place] 92 degrees Normal sinus rhythm Poor R wave progression Abnormal ECG When compared with ECG of 29-JUN-2018 20:23, QRS axis has shifted to the left. Confirmed by Anna KELLEY MICHAEL ([id number]) on 09/20/2018 7:48:19 AM Procedure Note Interface, External Ris In - 09/20/2018 7:48 AM CDT Ventricular Rate 90 BPM Atrial Rate 90 BPM P-R Interval 158 ms QRS Duration 74 ms Q-T Interval 348 ms QTC Calculation(Bazett) 425 ms P [place] 75 degrees R [place] 62 degrees T [place] 92 degrees Normal sinus rhythm Poor R wave progression Abnormal ECG When compared with ECG of 29-JUN-2018 20:23, QRS axis has shifted to the left. Confirmed by Anna KELLEY MICHAEL ([id number]) on 09/20/2018 7:48:19 AM Performing Organization Address City/State/Zipcode Phone Number [place] [facility] * PERIPHERAL VASCULAR REPORT - SCAN (07/02/2018 9:10 PM CDT) Narrative Performed At * 2D Echo W/Doppler(CW/PW/Color) (07/02/2018 3:54 PM CDT) Ejection Fraction [facility] Specimen Narrative Performed At Transthoracic Echocardiography Report (TTE) [facility] Demographics [facility] Patient Name DAISY JACOB Date of Study 07/02/2018 PENNIE [id number] Female Visit Number [id number] Room Number [id number] Number Date 4Referring BirthPhysician Age72 year(s)Size Stamper Lo Kyle, NB, RDCS,RVT,RDMS AnalystAlsantana Pires InterpretingChung Hogue Physician Procedure Type of Study TTE procedure:2DECHO W DOPPLER(CW/PW/COLOR) (Routine) Indications:Shortness of breath. Clinical History Congestive Heart Failure COPD Diabetes Vascular Disease S/P CABG HGB 10.8 HCT 35.7 % Contrast Medium: Definity. Amount - 2 ml Height: 64 inches Weight: 71.67 kg (158 lbs) BSA: 1.77 m^2 BMI: 27.12 kg/m^2 HR: 94 bpm BP: 109/56 mmHg Summary Global LV systolic function mildly reduced . Estimated LVEF by qualitative assessment is mildly reduced (40-44%) . Normal right ventricle structure and function. Normal atria size Unable to estimate peak systolic PA pressure; inadequate TR velocity signal. No evidence of pericardial effusion. Signature Findings Left Ventricle The left ventricle is chamber size (by PSLAX dimension) is normal (female - LVIDd 3.8-5.2cm) . Normal LV wall thickness. The following segment(s) appear akinetic: basal to mid anterior, anteroseptal . The other segments contract normally. Global LV systolic function mildly reduced . Estimated LVEF by qualitative assessment is mildly reduced (40-44%) . Left AtriumLA size is normal . Right VentricleNormal right ventricle structure and function. Right Atrium Normal right atrium. Aortic Valve Mild AoV cusp thickening. Mitral Valve Mild MV leaflet thickening. Mild mitral annular calcification. Mild mitral regurgitation. Tricuspid ValveA trace of tricuspid regurgitation. Unable to estimate peak systolic PA pressure; inadequate TR velocity signal. Pulmonic Valve Normal PV structure and function by limited views and Doppler. AortaAortic root size (SInus of Valsalva diameter) is normal . PericardiumNo evidence of pericardial effusion. IVC/SVC/PA/PV/PleuralThe estimated RA pressure by IVC dynamics 5-10mmHg . Chambers/Structures Left Atrium LA Dimension: 4.3 cmLA Area: 19.8 cm^2 LA Volume: 60.42 ml LA Vol. Index: 34 ml/m^2 Left Ventricle LVIDd: 5.27 cm LV Septum Diastolic: 1.08 cm LV PW Diastolic: 1.03 cm Aorta Ao Root S of Heaven.: 3.14 cm Procedure Note Interface, External Ris In - 07/02/2018 6:55 PM CDT Transthoracic Echocardiography Report (TTE) Demographics Patient Name DAISY JACOB Date of Study 07/02/2018 PENNIE Gender Female Visit Number [id number] Race Unknown Room Number 1434 Number Date of 1945 Referring Physician Age 72 year(s) Size Stamper Lo Kyle, SUSANA, RDCS,RVT,RDMS Dumpster Operator Jarocho Hogue Physician Procedure Type of Study TTE procedure:2DECHO W DOPPLER(CW/PW/COLOR) (Routine) Indications:Shortness of breath. Clinical History Congestive Heart Failure COPD Diabetes Vascular Disease S/P CABG HGB 10.8 HCT 35.7 % Contrast Medium: Definity. Amount - 2 ml Height: 64 inches Weight: 71.67 kg (158 lbs) BSA: 1.77 m^2 BMI: 27.12 kg/m^2 HR: 94 bpm BP: 109/56 mmHg Summary Global LV systolic function mildly reduced . Estimated LVEF by qualitative assessment is mildly reduced (40-44%) . Normal right ventricle structure and function. Normal atria size Unable to estimate peak systolic PA pressure; inadequate TR velocity signal. No evidence of pericardial effusion. Signature Findings Left Ventricle The left ventricle is chamber size (by PSLAX dimension) is normal (female - LVIDd 3.8-5.2cm) . Normal LV wall thickness. The following segment(s) appear akinetic: basal to mid anterior, anteroseptal . The other segments contract normally. Global LV systolic function mildly reduced . Estimated LVEF by qualitative assessment is mildly reduced (40-44%) . Left Atrium LA size is normal . Right Ventricle Normal right ventricle structure and function. Right Atrium Normal right atrium. Aortic Valve Mild AoV cusp thickening. Mitral Valve Mild MV leaflet thickening. Mild mitral annular calcification. Mild mitral regurgitation. Tricuspid Valve A trace of tricuspid regurgitation. Unable to estimate peak systolic PA pressure; inadequate TR velocity signal. Pulmonic Valve Normal PV structure and function by limited views and Doppler. Aorta Aortic root size (SInus of Valsalva diameter) is normal . Pericardium No evidence of pericardial effusion. IVC/SVC/PA/PV/Pleural The estimated RA pressure by IVC dynamics 5-10mmHg . Chambers/Structures Left Atrium LA Dimension: 4.3 cm LA Area: 19.8 cm^2 LA Volume: 60.42 ml LA Vol. Index: 34 ml/m^2 Left Ventricle LVIDd: 5.27 cm LV Septum Diastolic: 1.08 cm LV PW Diastolic: 1.03 cm Aorta Ao Root S of [place].: 3.14 cm Performing Organization Address City/State/Zipcode Phone Number [facility] [place] BLOOM * Venous doppler legs bilateral (07/01/2018 10:16 PM CDT) Ejection Fraction [facility] [place] [facility]OM Specimen Impressions Performed At Right Impression [facility] 1. There is no deep venous obstruction in the common femoral, profunda [facility] femoral, femoral, popliteal, posterior tibial or peroneal veins. 2. There is no superficial venous obstruction in the great saphenous vein. 3. Incidental finding: A nonvascular 0.9 cm x 1.44 cm anechoic fluid collection is noted in the popliteal fossa. Left Impression 1. There is no deep venous obstruction in the common femoral, profunda femoral, femoral, popliteal, peroneal or posterior tibial veins. 2. The great saphenous vein has been harvested. Conclusions Summary Venous duplex imaging and compression of the bilateral lower extremities were performed. The veins were adequately visualized. The bilateral venous systems were patent and compressible with no evidence of thrombus. Incidental finding: A nonvascular 0.9 cm x 1.44 cm anechoic fluid collection was noted in the right popliteal fossa. Signature Velocities are measured in cm/s ; Diameters are measured in cm Narrative Performed At PV LAB - Lower Extremities DVT Study [facility] Demographics [facility] Patient Name DAISY JACOB Date of Study07/01/2018 PENNIE [id number] Visit Number [id number] Female Accession Number [id number] of Birth1945 [facility] [id number] Physician SonographerYury Ricoterpreting Lorne Ray Procedure Type of Study: Veins: Lower Extremities DVT Study, VENOUS DOPPLER LEG, BILATERAL. Indications for Study:Swelling. Patient Status:Routine. Study Location:Portable. Technical Quality:Adequate visualization. Risk Factors History of Disease + +----+ + !Diagnosis !Date!Comments ! + +----+ + !History/Risk!!Current Smoker, COPD, DM, CHF, AAA, CAD w/CABG, Lt! !Factors:!!GSV Harvested ! + +----+ + Procedure Note Interface, External Ris In - 07/02/2018 12:03 PM CDT PV LAB - Lower Extremities DVT Study Demographics Patient Name DAISY JACOB Date of Study 07/01/2018 PENNIE Age 72 Visit Number [id number] Gender Female Accession Number [id number] Date of 1945 Referring [facility] Room Number [id number] Physician Size Stamper Yury Severino Interpreting Physician ADRIANA Ray Procedure Type of Study: Veins: Lower Extremities DVT Study, VENOUS DOPPLER LEG, BILATERAL. Indications for Study:Swelling. Patient Status:Routine. Study Location:Portable. Technical Quality:Adequate visualization. Risk Factors History of Disease + +----+ + !Diagnosis !Date!Comments ! + +----+ + !History/Risk ! !Current Smoker, COPD, DM, CHF, AAA, CAD w/CABG, Lt! !Factors: ! !GSV Harvested ! + +----+ + Impressions Right Impression 1. There is no deep venous obstruction in the common femoral, profunda femoral, femoral, popliteal, posterior tibial or peroneal veins. 2. There is no superficial venous obstruction in the great saphenous vein. 3. Incidental finding: A nonvascular 0.9 cm x 1.44 cm anechoic fluid collection is noted in the popliteal fossa. Left Impression 1. There is no deep venous obstruction in the common femoral, profunda femoral, femoral, popliteal, peroneal or posterior tibial veins. 2. The great saphenous vein has been harvested. Conclusions Summary Venous duplex imaging and compression of the bilateral lower extremities were performed. The veins were adequately visualized. The bilateral venous systems were patent and compressible with no evidence of thrombus. Incidental finding: A nonvascular 0.9 cm x 1.44 cm anechoic fluid collection was noted in the right popliteal fossa. Signature Velocities are measured in cm/s ; Diameters are measured in cm Performing Organization Address City/[facility] Phone Number [facility] MKCKESSON CPACS * TSH/Free T4 If Indicated (06/30/2018 4:57 AM CDT) TSH 4.82 0.35 - 4.94 uIU/mL [facility] Specimen Blood Performing Organization Address [facility] Phone Number [address] * Potassium (06/29/2018 11:12 PM CDT) Potassium 5.5 (H) 3.5 - 5.1 meq/L [facility] Specimen Blood Performing Organization Address [facility] Phone Number [address] * B-type natriuretic peptide (06/29/2018 11:12 PM CDT) BNP 1,785 (H) 0 - 100 pg/mL [facility] Specimen Blood Performing Organization Address [facility] Phone Number [address] after 11/09/2017 Insurance Payer Benefit Subscriber ID Type Phone Address Plan / Group [employer] K[employer]ARE xxxxxxxxxxx MEDICARE ADV CIGNA - MGD CARE CIGNA xxxxxxxxxxx HMO/POS HMO/POS/OP EN ACCESS Advance Directives For more information, please contact: [address] [address] Date Inactivated Comments Code Status Date Activated 10/26/2018 9:29 PM Full Code 10/26/2018 6:46 AM This code status was determined by: Patient 09/20/2018 8:16 PM Full Code 09/19/2018 1:49 PM This code status was determined by: Patient
--- OUTSIDE RECORDS SUMMARY | 2018-11-10 14:14 | XMS REPORT ---
Author Author [facility] Address Unknown Phone Unavailable Care Team Providers Care Analysis Consultant Name Role Phone ALEX MANSFIELD Unavailable Unavailable GUTIERREZ AGARWAL Unavailable Unavailable JULIANNA MARK Unavailable Unavailable Marie MIRZA Unavailable Unavailable GUTIERREZ ESTRADA Unavailable Unavailable Problems This patient has no known problems. Allergies, Adverse Reactions, Alerts This patient has no known allergies or adverse reactions. Medications This patient has no known medications. Results Test Description Test Time Test Comments Text Results Atomic Results Result Comments POCT-ACT 2018-10-26 11:59:00 ACTIVATED CLOTTING TIME (BEAKER) (test ilep=577) 142 sec TESTED AT [address] [address] HEMOGLOBIN [id number] 14:19:00* Test Item Value Reference Range Comments HEMOGLOBIN A1C (BEAKER) (test lkfk=423) 6.5 % 4.3-6.1 VITAMIN D, [id number] 06:35:00* Test Item Value Reference Range Comments VITAMIN D 25-OH (BEAKER) (test xana=6686) 12.5 ng/mL 6.6-49.9 Effective 01/04/2017: Reference Range ChangeNew: 6.6-49.9 ng/mL Previous: 13.0 -47.8 ng/mLRecommended Vitamin D Target Range: 30.0-40.0 ng/mLPHOSPHORUS 2018-09-20 05:15:00* Test Item Value Reference Range Comments PHOSPHORUS (BEAKER) (test hmxs=830) 4.0 mg/dL 2.3-4.7 [id number] 05:15:00* Test Item Value Reference Range Comments MAGNESIUM (BEAKER) (test vaai=332) 1.8 mg/dL 1.6-2.6 BASIC METABOLIC [id number] 05:15:00* Test Item Value Reference Range Comments SODIUM (BEAKER) (test cwob=272) 134 meq/L 136-145 POTASSIUM (BEAKER) (test zrav=178) 4.6 meq/L 3.5-5.1 CHLORIDE (BEAKER) (test fnfe=393) 95 meq/L 98-107 CO2 (BEAKER) (test nzrf=959) 30 meq/L 22-29 BLOOD UREA NITROGEN (BEAKER) (test sdos=142) 24 mg/dL 7-21 CREATININE (BEAKER) (test nhjs=283) 0.99 mg/dL 0.57-1.25 GLUCOSE RANDOM (BEAKER) (test uysg=984) 167 mg/dL 70-105 CALCIUM (BEAKER) (test rhde=600) 9.3 mg/dL 8.4-10.2 EGFR (BEAKER) (test knfn=8591) 55 mL/min/1.73 sq m ESTIMATED GFR IS NOT ACCURATE CREATININE CLEARANCE IN PREDICTING GLOMERULAR FILTRATION RATE. ESTIMATED GFR IS NOT APPLICABLE FOR DIALYSIS PATIENTS. TROPONIN [id number] 05:09:00* Test Item Value Reference Range Comments TROPONIN I (BEAKER) (test yvxc=752) < ng/mL 0.00-0.03 Troponin I (TnI) levels must be interpreted in the context of the presenting sym ptoms and the clinical findings. Elevated TnI levels indicate myocardial damage, but are not specific for ischemic heart disease. Elevated TnI levels are seen in patients with other cardiac conditions (including myocarditis and congestive h eart failure), and slight TnI elevations occur in patients with other conditions , including sepsis, renal failure, acidosis, acute neurological disease, and per sistent tachyarrhythmia.CBC W/PLT COUNT & AUTO [id number] 04:38:00* Test Item Value Reference Range Comments WHITE BLOOD CELL COUNT (BEAKER) (test zlts=125) 7.9 K/ L 3.5-10.5 RED BLOOD CELL COUNT (BEAKER) (test nyrj=783) 4.40 M/ L 3.93-5.22 HEMOGLOBIN (BEAKER) (test yalx=651) 11.8 GM/DL 11.2-15.7 HEMATOCRIT (BEAKER) (test vtoa=119) 38.0 % 34.1-44.9 MEAN CORPUSCULAR VOLUME (BEAKER) (test swnc=905) 86.4 fL 79.4-94.8 MEAN CORPUSCULAR HEMOGLOBIN (BEAKER) (test llzh=617) 26.8 pg 25.6-32.2 MEAN CORPUSCULAR HEMOGLOBIN CONC (BEAKER) (test rrpb=613) 31.1 GM/DL 32.2-35.5 RED CELL DISTRIBUTION WIDTH (BEAKER) (test vvxj=406) 15.2 % 11.7-14.4 PLATELET COUNT (BEAKER) (test jtrt=044) 196 K/CU MM 150-450 MEAN PLATELET VOLUME (BEAKER) (test jdqx=118) 10.1 fL 9.4-12.3 NUCLEATED RED BLOOD CELLS (BEAKER) (test holz=025) 0 /100 WBC 0-0 NEUTROPHILS RELATIVE PERCENT (BEAKER) (test cbcj=746) 63 % LYMPHOCYTES RELATIVE PERCENT (BEAKER) (test ziaq=943) 22 % MONOCYTES RELATIVE PERCENT (BEAKER) (test aiti=641) 11 % EOSINOPHILS RELATIVE PERCENT (BEAKER) (test fqgy=233) 3 % BASOPHILS RELATIVE PERCENT (BEAKER) (test ycbw=344) 1 % NEUTROPHILS ABSOLUTE COUNT (BEAKER) (test jtgu=498) 4.99 K/ L 1.56-6.13 LYMPHOCYTES ABSOLUTE COUNT (BEAKER) (test tsdj=220) 1.76 K/ L 1.18-3.74 MONOCYTES ABSOLUTE COUNT (BEAKER) (test jgho=430) 0.83 K/ L 0.24-0.36 EOSINOPHILS ABSOLUTE COUNT (BEAKER) (test lasa=994) 0.25 K/ L 0.04-0.36 BASOPHILS ABSOLUTE COUNT (BEAKER) (test smeq=608) 0.06 K/ L 0.01-0.08 IMMATURE GRANULOCYTES-RELATIVE PERCENT (BEAKER) (test yubq=6766) 0 % 0-1 TROPONIN [id number] 19:11:00* Test Item Value Reference Range Comments TROPONIN I (BEAKER) (test slvr=234) < ng/mL 0.00-0.03 Troponin I (TnI) levels must be interpreted in the context of the presenting sym ptoms and the clinical findings. Elevated TnI levels indicate myocardial damage, but are not specific for ischemic heart disease. Elevated TnI levels are seen in patients with other cardiac conditions (including myocarditis and congestive h eart failure), and slight TnI elevations occur in patients with other conditions , including sepsis, renal failure, acidosis, acute neurological disease, and per sistent tachyarrhythmia.POCT-GLUCOSE [id number] 18:29:00* Test Item Value Reference Range Comments POC-GLUCOSE METER (BEAKER) (test yuve=5800) 119 mg/dL 70-110 TESTED AT [facility] [address] [facility] [address] POCT-GLUCOSE [id number] 18:03:00* Test Item Value Reference Range Comments POC-GLUCOSE METER (BEAKER) (test ffpo=5301) 121 mg/dL 70-110 TESTED AT [facility] [address] [facility] [address] RAD, CHEST, 1 VIEW, NON [id number] 11:01:00Reason for exam:->CHEST PAINReason for exam:->NUMBNESSShould this be performed at the bedside?->YesFINAL REPORT CLINICAL HISTORY: CHEST PAINNUMBNESS TECHNIQUE: 1 view of the chest. COMPARISON: 06/29/2018 IMPRESSION: The chin partially obscures the lung apices, but there is no visualized lobar consolidation. There is bibasilar atelectasis with blunting of both costophrenic angles. The cardiomedi astinal silhouette is magnified by technique with sternotomy wires. Right devon l suture anchors are again noted. Signed: Sarah Cook Verified Date/T alex: 09/19/2018 11:01:26 Reading Location: [facility] Radiology Reading Room ONIN [id number] 10:41:00* Test Item Value Reference Range Comments TROPONIN I (BEAKER) (test uyft=268) < ng/mL 0.00-0.03 Troponin I (TnI) levels must be interpreted in the context of the presenting sym ptoms and the clinical findings. Elevated TnI levels indicate myocardial damage, but are not specific for ischemic heart disease. Elevated TnI levels are seen in patients with other cardiac conditions (including myocarditis and congestive h eart failure), and slight TnI elevations occur in patients with other conditions , including sepsis, renal failure, acidosis, acute neurological disease, and per sistent tachyarrhythmia.[id number] 10:34:00* Test Item Value Reference Range Comments MAGNESIUM (BEAKER) (test fupy=779) 1.7 mg/dL 1.6-2.6 BASIC METABOLIC [id number] 10:34:00* Test Item Value Reference Range Comments SODIUM (BEAKER) (test hecn=971) 133 meq/L 136-145 POTASSIUM (BEAKER) (test txbf=224) 4.8 meq/L 3.5-5.1 CHLORIDE (BEAKER) (test kbyb=442) 95 meq/L 98-107 CO2 (BEAKER) (test skaz=980) 31 meq/L 22-29 BLOOD UREA NITROGEN (BEAKER) (test gaco=523) 20 mg/dL 7-21 CREATININE (BEAKER) (test sobp=843) 0.78 mg/dL 0.57-1.25 GLUCOSE RANDOM (BEAKER) (test ifyr=471) 83 mg/dL 70-105 CALCIUM (BEAKER) (test curx=411) 9.4 mg/dL 8.4-10.2 EGFR (BEAKER) (test wcpm=1122) 72 mL/min/1.73 sq m ESTIMATED GFR IS NOT ACCURATE CREATININE CLEARANCE IN PREDICTING GLOMERULAR FILTRATION RATE. ESTIMATED GFR IS NOT APPLICABLE FOR DIALYSIS PATIENTS. HEPATIC FUNCTION [id number] 10:34:00* Test Item Value Reference Range Comments TOTAL PROTEIN (BEAKER) (test rwgi=627) 7.5 gm/dL 6.0-8.3 ALBUMIN (BEAKER) (test frvp=3740) 3.8 g/dL 3.5-5.0 BILIRUBIN TOTAL (BEAKER) (test iyve=638) 0.5 mg/dL 0.2-1.2 BILIRUBIN DIRECT (BEAKER) (test tbyl=972) 0.3 mg/dL 0.1-0.5 ALKALINE PHOSPHATASE (BEAKER) (test zpgg=226) 161 U/L 40-150 AST (SGOT) (BEAKER) (test vyfv=234) 21 U/L 5-34 ALT (SGPT) (BEAKER) (test ylpb=517) 15 U/L 6-55 CT, BRAIN, WITHOUT [id number] 10:21:00Reason for exam:->CHEST PAINReason for exam:->NUMBNESSWhat is the patient's sedation requirement?->No SedationFINAL REPORT CT, BRAIN, WITHOUT CONTRAST INDICATION: Paralysis / Paresthesia, facialCHEST PAINNUMBNESS TECHNIQUE: Noncontrast axial imaging was obtained from the vertex to the skull base. Axial images were reconstructed using a bone algorithm. DOSE REDUCTION: Dose modulation, iterative reconstruc tion, and/or weight-based adjustment of the mA/kV was utilized to reduce the rad iation dose to as low as reasonably achievable. COMPARISON: July 02, 2018 FINDIN GS: Cerebral parenchyma: Diffuse parenchymal volume loss. No recent infarct or h emorrhage.Midline structures: Normally positioned.Cerebellum and brainstem: Comm ensurate volume loss.Ventricles: Normal volume.Extra-axial spaces: Unremarkable. Calvarium and skull base: Intact.Paranasal sinuses and mastoid air cells: Visib le chambers are clear.Orbital contents: Included portions unremarkable. Addition al findings: None. IMPRESSION: Chronic involutional changes without acute intr acranial abnormality. If there is persistent clinical concern for intracranial p athology, MR examination is recommended for further characterization. Signed: Zac cook JR, Renetta Ford Verified Date/Time: 09/19/2018 10:21:30 Reading Location: [address] Neuro Reading Room W/PLT COUNT & AUTO DIFFERENTIAL 2018-09-19 10:15:00* Test Item Value Reference Range Comments WHITE BLOOD CELL COUNT (BEAKER) (test uegl=108) 8.3 K/ L 3.5-10.5 RED BLOOD CELL COUNT (BEAKER) (test pych=216) 4.42 M/ L 3.93-5.22 HEMOGLOBIN (BEAKER) (test qnhv=111) 11.8 GM/DL 11.2-15.7 HEMATOCRIT (BEAKER) (test rvag=210) 38.2 % 34.1-44.9 MEAN CORPUSCULAR VOLUME (BEAKER) (test kwzv=123) 86.4 fL 79.4-94.8 MEAN CORPUSCULAR HEMOGLOBIN (BEAKER) (test avhu=489) 26.7 pg 25.6-32.2 MEAN CORPUSCULAR HEMOGLOBIN CONC (BEAKER) (test qfft=788) 30.9 GM/DL 32.2-35.5 RED CELL DISTRIBUTION WIDTH (BEAKER) (test hbhd=048) 15.2 % 11.7-14.4 PLATELET COUNT (BEAKER) (test txol=921) 180 K/CU MM 150-450 MEAN PLATELET VOLUME (BEAKER) (test mpks=819) 9.7 fL 9.4-12.3 NUCLEATED RED BLOOD CELLS (BEAKER) (test ijnu=972) 0 /100 WBC 0-0 NEUTROPHILS RELATIVE PERCENT (BEAKER) (test fzod=561) 75 % LYMPHOCYTES RELATIVE PERCENT (BEAKER) (test dupd=106) 14 % MONOCYTES RELATIVE PERCENT (BEAKER) (test hrhm=136) 8 % EOSINOPHILS RELATIVE PERCENT (BEAKER) (test nzeh=534) 2 % BASOPHILS RELATIVE PERCENT (BEAKER) (test mbjn=178) 1 % NEUTROPHILS ABSOLUTE COUNT (BEAKER) (test frdz=449) 6.27 K/ L 1.56-6.13 LYMPHOCYTES ABSOLUTE COUNT (BEAKER) (test jilc=659) 1.17 K/ L 1.18-3.74 MONOCYTES ABSOLUTE COUNT (BEAKER) (test xjut=843) 0.68 K/ L 0.24-0.36 EOSINOPHILS ABSOLUTE COUNT (BEAKER) (test dimm=455) 0.14 K/ L 0.04-0.36 BASOPHILS ABSOLUTE COUNT (BEAKER) (test znjc=854) 0.04 K/ L 0.01-0.08 IMMATURE GRANULOCYTES-RELATIVE PERCENT (BEAKER) (test owly=3392) 0 % 0-1 POCT-GLUCOSE [id number] 21:29:00* Test Item Value Reference Range Comments POC-GLUCOSE METER (BEAKER) (test diva=3116) 354 mg/dL 70-110 TESTED AT [address] [address] POCT-GLUCOSE [id number] 18:16:00* Test Item Value Reference Range Comments POC-GLUCOSE METER (BEAKER) (test daye=2847) 161 mg/dL 70-110 TESTED AT [address] [address] POCT-GLUCOSE [id number] 12:58:00* Test Item Value Reference Range Comments POC-GLUCOSE METER (BEAKER) (test tnhd=9310) 196 mg/dL 70-110 TESTED AT [address] [address] [address], BRAIN, WITHOUT [id number] 09:07:00FINAL REPORT CT Head without contrast CLINICAL HISTORY: Head trauma, ataxia TECHNIQUE: Contiguous axial images through the head without contrast. This exam was performed according to the departmental dose optimization program which includes automated exposure control, adjustment of the mA and/or kV according to the patient size, and/or use of an iterative reconstruction technique. COMPARISON: 06/29/2018 FINDINGS: There is a left posterior scalp hematoma. There is no skull fracture or intracranial hemorrhage. There is periventricular and subcortical white matter hypodensity which is nonspecific but compatible with chronic microvascular ischemic change. There are atherosclerotic calcifications of the intracranial circulation. There is generalized parenchymal volume loss without hydrocephalus, midline shift, or apparent mass effect. IMPRESSION: No ev idence of skull fracture or intracranial hemorrhage. Left posterior scalp hemato ma. Signed: Sarah Cook MDReport Verified Date/Time: 07/02/2018 09:07:16 Read ing Location: [address] Neuro Reading Room -GLUCOSE [id number] 08:38:00* Test Item Value Reference Range Comments POC-GLUCOSE METER (BEAKER) (test yymz=1199) 176 mg/dL 70-110 TESTED AT [place] [id number] [facility] [address] [id number] 06:04:00* Test Item Value Reference Range Comments MAGNESIUM (BEAKER) (test lugj=770) 2.0 mg/dL 1.6-2.6 BASIC METABOLIC [id number] 06:04:00* Test Item Value Reference Range Comments SODIUM (BEAKER) (test sfps=132) 134 meq/L 136-145 POTASSIUM (BEAKER) (test acuz=331) 4.1 meq/L 3.5-5.1 CHLORIDE (BEAKER) (test lxcd=780) 90 meq/L 98-107 CO2 (BEAKER) (test zoxd=878) 32 meq/L 22-29 BLOOD UREA NITROGEN (BEAKER) (test bbik=119) 18 mg/dL 7-21 CREATININE (BEAKER) (test nnox=251) 0.99 mg/dL 0.57-1.25 GLUCOSE RANDOM (BEAKER) (test jkpx=874) 154 mg/dL 70-105 CALCIUM (BEAKER) (test nukm=350) 9.6 mg/dL 8.4-10.2 EGFR (BEAKER) (test cipg=0714) 55 mL/min/1.73 sq m ESTIMATED GFR IS NOT ACCURATE CREATININE CLEARANCE IN PREDICTING GLOMERULAR FILTRATION RATE. ESTIMATED GFR IS NOT APPLICABLE FOR DIALYSIS PATIENTS. POCT-GLUCOSE [id number] 20:49:00* Test Item Value Reference Range Comments POC-GLUCOSE METER (BEAKER) (test lxkw=7519) 210 mg/dL 70-110 TESTED AT [address] [address] POCT-GLUCOSE [id number] 17:42:00* Test Item Value Reference Range Comments POC-GLUCOSE METER (BEAKER) (test kapv=7860) 198 mg/dL 70-110 TESTED AT [address] [address] POCT-GLUCOSE [id number] 11:59:00* Test Item Value Reference Range Comments POC-GLUCOSE METER (BEAKER) (test iypy=5518) 151 mg/dL 70-110 TESTED AT [address] [address] POCT-GLUCOSE [id number] 08:10:00* Test Item Value Reference Range Comments POC-GLUCOSE METER (BEAKER) (test fqku=6539) 204 mg/dL 70-110 TESTED AT [address] [address] BASIC METABOLIC [id number] 07:56:00* Test Item Value Reference Range Comments SODIUM (BEAKER) (test mbay=558) 132 meq/L 136-145 POTASSIUM (BEAKER) (test txaj=379) 4.8 meq/L 3.5-5.1 CHLORIDE (BEAKER) (test zxtj=230) 93 meq/L 98-107 CO2 (BEAKER) (test mpak=179) 30 meq/L 22-29 BLOOD UREA NITROGEN (BEAKER) (test bxca=748) 16 mg/dL 7-21 CREATININE (BEAKER) (test kyen=795) 0.92 mg/dL 0.57-1.25 GLUCOSE RANDOM (BEAKER) (test agre=354) 158 mg/dL 70-105 CALCIUM (BEAKER) (test pbpn=969) 9.5 mg/dL 8.4-10.2 EGFR (WILIANAKER) (test nbsn=0760) 60 mL/min/1.73 sq m ESTIMATED GFR IS NOT ACCURATE CREATININE CLEARANCE IN PREDICTING GLOMERULAR FILTRATION RATE. ESTIMATED GFR IS NOT APPLICABLE FOR DIALYSIS PATIENTS. POCT-GLUCOSE [id number] 21:00:00* Test Item Value Reference Range Comments POC-GLUCOSE METER (BEAKER) (test eetw=1278) 184 mg/dL 70-110 TESTED AT [facility] [address] [facility] [address] POCT-GLUCOSE [id number] 16:33:00* Test Item Value Reference Range Comments POC-GLUCOSE METER (BEAKER) (test glvz=4631) 143 mg/dL 70-110 TESTED AT [facility] [address] [facility] [address] TROPONIN [id number] 12:46:00* Test Item Value Reference Range Comments TROPONIN I (BEAKER) (test xobv=091) 0.14 ng/mL 0.00-0.03 Troponin I (TnI) levels must be interpreted in the context of the presenting sym ptoms and the clinical findings. Elevated TnI levels indicate myocardial damage, but are not specific for ischemic heart disease. Elevated TnI levels are seen in patients with other cardiac conditions (including myocarditis and congestive h eart failure), and slight TnI elevations occur in patients with other conditions , including sepsis, renal failure, acidosis, acute neurological disease, and per sistent tachyarrhythmia.TSH/FREE T4 IF [id number] 05:58:00* Test Item Value Reference Range Comments THYROID STIMULATING HORMONE (MAIKEL) (test xwmg=625) 4.82 uIU/mL 0.35-4.94 TROPONIN [id number] 05:40:00* Test Item Value Reference Range Comments TROPONIN I (WILIANAKER) (test nctq=721) 0.15 ng/mL 0.00-0.03 Troponin I (TnI) levels must be interpreted in the context of the presenting sym ptoms and the clinical findings. Elevated TnI levels indicate myocardial damage, but are not specific for ischemic heart disease. Elevated TnI levels are seen in patients with other cardiac conditions (including myocarditis and congestive h eart failure), and slight TnI elevations occur in patients with other conditions , including sepsis, renal failure, acidosis, acute neurological disease, and per sistent tachyarrhythmia.BASIC METABOLIC [id number] 05:37:00* Test Item Value Reference Range Comments SODIUM (BEAKER) (test dtdr=428) 131 meq/L 136-145 POTASSIUM (BEAKER) (test kabq=530) 5.4 meq/L 3.5-5.1 CHLORIDE (BEAKER) (test urdk=206) 95 meq/L 98-107 CO2 (BEAKER) (test knkt=556) 28 meq/L 22-29 BLOOD UREA NITROGEN (BEAKER) (test zhcn=493) 14 mg/dL 7-21 CREATININE (BEAKER) (test flvi=403) 0.78 mg/dL 0.57-1.25 GLUCOSE RANDOM (BEAKER) (test ehgv=374) 75 mg/dL 70-105 CALCIUM (BEAKER) (test eobd=335) 9.6 mg/dL 8.4-10.2 EGFR (BEAKER) (test fhfq=2284) 72 mL/min/1.73 sq m ESTIMATED GFR IS NOT ACCURATE CREATININE CLEARANCE IN PREDICTING GLOMERULAR FILTRATION RATE. ESTIMATED GFR IS NOT APPLICABLE FOR DIALYSIS PATIENTS. POCT-GLUCOSE [id number] 00:03:00* Test Item Value Reference Range Comments POC-GLUCOSE METER (BEAKER) (test fjel=7580) 94 mg/dL 70-110 TESTED AT [address] [address] B-TYPE NATRIURETIC FACTOR (BNP)2018-06-29 23:44:00* Test Item Value Reference Range Comments B-TYPE NATRIURETIC PEPTIDE (BEAKER) (test eris=073) 1785 pg/mL 0-100 [id number] 23:32:00* Test Item Value Reference Range Comments POTASSIUM (BEAKER) (test xuat=982) 5.5 meq/L 3.5-5.1 RAD, CHEST, 1 VIEW, NON [id number] 22:07:00Reason for exam:->LEG SWELLINGReason for exam:->GENERALIZED WEAKNESS, NOT ASSOCIATED WITH EXTREMITIESReason for exam:->ALTERED MENTAL STATUSFINAL REPORT EXAMINATION: AP PORTABLE CHEST RADIOGRAPH CLINICAL INDICATION: Leg swelling IMPRESSION: Compared with 02/15/2009. Lung volumes are relatively large with apical radiolucency, nonspecific but can be associated with underlying obstructive lung disease-emphysema. There is blunting of the costophrenic sulci, new compared with 02/15/2009. Although a component may reflect the large lung volumes, superimposed small pleural effusions and/or pleural thickening should also be considered. The heart is enlarged. Thin curvilinear and small patchy opacities are also noted at the lung bases. A component of atelectasis and/or scarring is favored. Mild pulmonary edema should also be considered. An underlying pneumonia or mass lesion cannot be excluded. No evidence of a p neumothorax. In summary, constellation of findings concerning for fluid overload /heart failure as well as obstructive lung disease/emphysema. Note: Chest CT cou ld be performed for further evaluation if warranted. Signed: Anna Valenciaepo rt Verified Date/Time: 06/29/2018 22:07:22 Reading Location: [address] Reading Room Electronically signed by: ANNA VALENCIA M.D. on 019 10:07 PM TROPONIN [id number] 21:47:00* Test Item Value Reference Range Comments TROPONIN I (BEAKER) (test ipna=279) 0.14 ng/mL 0.00-0.03 Troponin I (TnI) levels must be interpreted in the context of the presenting sym ptoms and the clinical findings. Elevated TnI levels indicate myocardial damage, but are not specific for ischemic heart disease. Elevated TnI levels are seen in patients with other cardiac conditions (including myocarditis and congestive h eart failure), and slight TnI elevations occur in patients with other conditions , including sepsis, renal failure, acidosis, acute neurological disease, and per sistent tachyarrhythmia.[id number] 21:41:00* Test Item Value Reference Range Comments PHOSPHORUS (BEAKER) (test hdfh=663) 3.4 mg/dL 2.3-4.7 [id number] 21:41:00* Test Item Value Reference Range Comments MAGNESIUM (BEAKER) (test nahk=753) 1.9 mg/dL 1.6-2.6 BASIC METABOLIC [id number] 21:41:00* Test Item Value Reference Range Comments SODIUM (BEAKER) (test exmv=377) 128 meq/L 136-145 POTASSIUM (BEAKER) (test gicv=777) 5.5 meq/L 3.5-5.1 CHLORIDE (BEAKER) (test wzep=421) 96 meq/L 98-107 CO2 (BEAKER) (test avzb=906) 25 meq/L 22-29 BLOOD UREA NITROGEN (BEAKER) (test vaib=080) 15 mg/dL 7-21 CREATININE (BEAKER) (test jsvd=681) 0.74 mg/dL 0.57-1.25 GLUCOSE RANDOM (BEAKER) (test ogbm=089) 41 mg/dL 70-105 CALCIUM (BEAKER) (test ydcn=106) 9.1 mg/dL 8.4-10.2 EGFR (BEAKER) (test yyvw=7181) 77 mL/min/1.73 sq m ESTIMATED GFR IS NOT ACCURATE CREATININE CLEARANCE IN PREDICTING GLOMERULAR FILTRATION RATE. ESTIMATED GFR IS NOT APPLICABLE FOR DIALYSIS PATIENTS. HEPATIC FUNCTION [id number] 21:41:00* Test Item Value Reference Range Comments TOTAL PROTEIN (BEAKER) (test vpom=928) 7.1 gm/dL 6.0-8.3 ALBUMIN (BEAKER) (test ljpx=7538) 3.5 g/dL 3.5-5.0 BILIRUBIN TOTAL (BEAKER) (test tqpz=570) 0.3 mg/dL 0.2-1.2 BILIRUBIN DIRECT (BEAKER) (test preu=817) 0.2 mg/dL 0.1-0.5 ALKALINE PHOSPHATASE (BEAKER) (test byhk=714) 167 U/L 40-150 AST (SGOT) (BEAKER) (test iaul=366) 19 U/L 5-34 ALT (SGPT) (BEAKER) (test byib=085) 11 U/L 6-55 CT, BRAIN, WITHOUT [id number] 21:41:00No IV contrastReason for exam:-> ConfusionWhat is the patient's sedation requirement?->No SedationFINAL REPORT EXAM: CT head without contrast. CLINICAL HISTORY: Confusion/delirium, altered LOC, unexplained COMPARISON: Head CT 07/21/04. TECHNIQUE: CT images of the head were obtained without intravenous contrast. T his exam was performed according to our departmental dose optimization program w hich includes automated exposure control, adjustment of the mA and/or kV accordi ng to patient's size and/or use of iterative reconstructive technique. FINDINGS: There are mild white matter microvascular ischemic changes. There is no acute i ntracranial hemorrhage, extra-axial fluid collection, mass effect, herniation, h ydrocephalus or large demarcated acute territorial infarct. The basal cisterns are patent. There are bilateral lens replacements. The visualized paranasal sin uses and tympanomastoid cavities are clear. The skull base and calvarium are in tact. IMPRESSION: Mild white matter microvascular ischemic changes. No CT evide nce of an acute intracranial process. MRI may be obtained for further evaluatio n as clinically warranted. Signed: Kelvin Aparicioeport Verified Date/Time: 0 06/29/2018 21:41:55 Reading Location: [facility] C013Y CT Body Reading Room Electr onically signed by: KELVIN APARICIO MD on 06/29/2018 09:41 PM CBC W/PLT COUNT & AUTO [id number] 21:16:00* Test Item Value Reference Range Comments WHITE BLOOD CELL COUNT (BEAKER) (test fyfz=529) 7.4 K/ L 3.5-10.5 RED BLOOD CELL COUNT (BEAKER) (test owao=335) 4.17 M/ L 3.93-5.22 HEMOGLOBIN (BEAKER) (test yimt=974) 10.8 GM/DL 11.2-15.7 HEMATOCRIT (BEAKER) (test jlva=668) 35.7 % 34.1-44.9 MEAN CORPUSCULAR VOLUME (BEAKER) (test nnkb=589) 85.6 fL 79.4-94.8 MEAN CORPUSCULAR HEMOGLOBIN (BEAKER) (test ugbv=794) 25.9 pg 25.6-32.2 MEAN CORPUSCULAR HEMOGLOBIN CONC (BEAKER) (test wmuq=770) 30.3 GM/DL 32.2-35.5 RED CELL DISTRIBUTION WIDTH (BEAKER) (test pujd=904) 15.2 % 11.7-14.4 PLATELET COUNT (BEAKER) (test wjfz=659) 220 K/CU MM 150-450 MEAN PLATELET VOLUME (BEAKER) (test vyhx=829) 9.7 fL 9.4-12.3 NUCLEATED RED BLOOD CELLS (BEAKER) (test wpcg=348) 0 /100 WBC 0-0 NEUTROPHILS RELATIVE PERCENT (BEAKER) (test zmeq=990) 69 % LYMPHOCYTES RELATIVE PERCENT (BEAKER) (test pnnk=383) 19 % MONOCYTES RELATIVE PERCENT (BEAKER) (test jnrp=273) 10 % EOSINOPHILS RELATIVE PERCENT (BEAKER) (test czti=697) 1 % BASOPHILS RELATIVE PERCENT (BEAKER) (test kqhl=829) 1 % NEUTROPHILS ABSOLUTE COUNT (BEAKER) (test iczg=491) 5.14 K/ L 1.56-6.13 LYMPHOCYTES ABSOLUTE COUNT (BEAKER) (test ligm=656) 1.40 K/ L 1.18-3.74 MONOCYTES ABSOLUTE COUNT (BEAKER) (test nocn=052) 0.74 K/ L 0.24-0.36 EOSINOPHILS ABSOLUTE COUNT (BEAKER) (test dkre=419) 0.09 K/ L 0.04-0.36 BASOPHILS ABSOLUTE COUNT (BEAKER) (test oozf=658) 0.04 K/ L 0.01-0.08 IMMATURE GRANULOCYTES-RELATIVE PERCENT (BEAKER) (test bnad=4201) 0 % 0-1 URINE [id number] 12:14:00* Test Item Value Reference Range Comments CULTURE (BEAKER) (test pwxx=3502) Amikacin (test code=1) Susceptible 0-16 , Resistant <0 or >16 Aztreonam (test code=32) Susceptible 0-8 , Resistant <0 or >8 Cefepime (test code=51) Susceptible 0-8 , Resistant <0 or >8 Ceftazidime (test code=27) Susceptible 0-8 , Resistant <0 or >8 Ciprofloxacin (test code=7) Susceptible 0-1 , Resistant <0 or >1 Doripenem (test msju=917) Susceptible 0-2 , Resistant <0 or >2 Gentamicin (test code=18) Susceptible 0-4 , Resistant <0 or >4 Imipenem (test code=19) Susceptible 0-2 , Resistant <0 or >2 Levofloxacin (test code=22) Susceptible 0-2 , Resistant <0 or >2 Meropenem (test code=34) Susceptible 0-2 , Resistant <0 or >2 Piperacillin (test code=24) Susceptible 0-16 , Resistant <0 or >16 Piperacillin + Tazobactam (test code=29) Susceptible 0-16 , Resistant <0 or >16 Tobramycin (test code=25) Susceptible 0-4 , Resistant <0 or >4 CULTURE (BEAKER) (test niak=3805) >100,000 col/mL Pseudomonas aeruginosa >100,000 col/mL skin floraCT, [id number] 01:31:00Reason for exam:-> umbilical hernbiaWhat is the patient's sedation requirement?->No SedationFINAL REPORT CLINICAL HISTORY: Acute abdominal pain, umbilical hernbia FINDINGS: Multiple axial images of the abdomen and pelvis were performed without intravenous contrast. Oral contrast was not given. This exam was performed according to our departmental dose-optimization program, which includ es automated exposure control, adjustment of the mA and/or kV according to patie nt size and/or use of the iterative reconstruction technique. Comparison: 09/01/19 10 Lower chest: Curvilinear atelectasis versus scarring in the lung bases. No pl eural effusion or pneumothorax. Prominent rim-like calcification in the region o f the right coronary artery measuring up to 14 mm. Liver: Subtle nodularity of t he hepatic contour suggesting underlying cirrhosis Gallbladder and biliary tree: No significant findings. Spleen: No significant findings. Adrenal Glands: No si gnificant findings. Kidneys and ureters: Atrophic kidneys. Punctate nonobstructi ng stone in the inferior right kidney. Stomach and Duodenum: No significant find ings. Pancreas: No significant findings. Bowel: Colonic diverticulosis. No bowel obstruction or pneumatosis intestinalis. Appendix: Normal. Bladder: No signi ficant findings. Major vascular structures: Diffuse atherosclerotic calcificatio n. Interval increase in the size of an infrarenal, suprailiac abdominal aortic a neurysm, which now measures 4.3 x 4.3 cm. Reproductive organs: Previous hysterec britni Other: Stable, small fat filled umbilical hernia with hernia neck measuring 1.8 cm. Stable, adjacent infraumbilical anterior midline hernia measuring 2.4 cm at the neck. Skeleton: No acute bony abnormality. IMPRESSION: Stable fat filled umbilical and interim focal ventral hernias. Subtle hepatic contour nodul arity suggesting underlying parenchymal disease, possibly cirrhosis. Please alejandra elate. Punctate nonobstructing right kidney stone. Colonic diverticulosis. Infra renal, suprailiac abdominal aortic aneurysm, increased since 2009, now measuring 4.3 x 4.3 cm. Follow-up imaging every 12 months is recommended. Curvilinear, ri m-like calcification in the expected position of the right coronary artery measu ring up to 1.4 cm and concerning for aneurysmal dilatation. Cardiology follow-up is recommended. Signed: Vishnu Kowalski MDReport Verified Date/Time: 04/19/2017 01:31:13 Reading Location: [facility] C013 CT Body Reading Room W/PLT COUNT & AUTO [id number] 21:01:00* Test Item Value Reference Range Comments WHITE BLOOD CELL COUNT (BEAKER) (test hxez=146) 13.7 K/ L 3.5-10.5 RED BLOOD CELL COUNT (BEAKER) (test tlia=974) 4.69 M/ L 3.93-5.22 HEMOGLOBIN (BEAKER) (test asto=315) 12.7 GM/DL 11.2-15.7 HEMATOCRIT (BEAKER) (test obay=189) 40.5 % 34.1-44.9 MEAN CORPUSCULAR VOLUME (BEAKER) (test ddxl=576) 86.4 fL 79.4-94.8 MEAN CORPUSCULAR HEMOGLOBIN (BEAKER) (test hyey=167) 27.1 pg 25.6-32.2 MEAN CORPUSCULAR HEMOGLOBIN CONC (BEAKER) (test nqej=567) 31.4 GM/DL 32.2-35.5 RED CELL DISTRIBUTION WIDTH (BEAKER) (test zfcf=480) 14.7 % 11.7-14.4 PLATELET COUNT (BEAKER) (test qgpu=444) 241 K/CU MM 150-450 MEAN PLATELET VOLUME (BEAKER) (test ssng=269) 9.9 fL 9.4-12.3 NUCLEATED RED BLOOD CELLS (BEAKER) (test rilz=729) 0 /100 WBC 0-0 NEUTROPHILS RELATIVE PERCENT (BEAKER) (test mncj=349) 73 % LYMPHOCYTES RELATIVE PERCENT (BEAKER) (test gkta=039) 18 % MONOCYTES RELATIVE PERCENT (BEAKER) (test buks=776) 7 % EOSINOPHILS RELATIVE PERCENT (BEAKER) (test bzki=302) 2 % BASOPHILS RELATIVE PERCENT (BEAKER) (test qzzw=211) 0 % NEUTROPHILS ABSOLUTE COUNT (BEAKER) (test bzty=113) 10.03 K/ L 1.56-6.13 LYMPHOCYTES ABSOLUTE COUNT (BEAKER) (test zxok=971) 2.44 K/ L 1.18-3.74 MONOCYTES ABSOLUTE COUNT (BEAKER) (test zcnt=054) 0.96 K/ L 0.24-0.36 EOSINOPHILS ABSOLUTE COUNT (BEAKER) (test dhde=726) 0.20 K/ L 0.04-0.36 BASOPHILS ABSOLUTE COUNT (BEAKER) (test pich=646) 0.04 K/ L 0.01-0.08 IMMATURE GRANULOCYTES-RELATIVE PERCENT (BEAKER) (test qwzh=9359) 0 % 0-1 BASIC METABOLIC [id number] 20:56:00* Test Item Value Reference Range Comments SODIUM (BEAKER) (test kgph=719) 135 meq/L 136-145 POTASSIUM (BEAKER) (test ykcj=446) 4.9 meq/L 3.5-5.1 CHLORIDE (BEAKER) (test yktm=487) 100 meq/L 98-107 CO2 (BEAKER) (test dtnw=124) 25 meq/L 22-29 BLOOD UREA NITROGEN (BEAKER) (test eiye=543) 14 mg/dL 7-21 CREATININE (BEAKER) (test gkom=928) 0.72 mg/dL 0.57-1.25 GLUCOSE RANDOM (BEAKER) (test kvka=690) 67 mg/dL 70-105 CALCIUM (BEAKER) (test mxgd=146) 9.6 mg/dL 8.4-10.2 EGFR (BEAKER) (test flbi=7416) mL/min/1.73 sq m INSUFFICIENT CLINICAL DATA TO CALCULATE ESTIMATED GFR. [id number] 20:52:00* Test Item Value Reference Range Comments LIPASE (BEAKER) (test nisk=845) 67 U/L 8-78 [id number] 20:52:00* Test Item Value Reference Range Comments AMYLASE (BEAKER) (test eujw=728) 58 U/L 25-125 HEPATIC FUNCTION [id number] 20:52:00* Test Item Value Reference Range Comments TOTAL PROTEIN (BEAKER) (test atbp=184) 7.6 gm/dL 6.0-8.3 ALBUMIN (BEAKER) (test gczb=4188) 3.7 g/dL 3.5-5.0 BILIRUBIN TOTAL (BEAKER) (test szaf=671) 0.4 mg/dL 0.2-1.2 BILIRUBIN DIRECT (BEAKER) (test eqat=824) 0.2 mg/dL 0.1-0.5 ALKALINE PHOSPHATASE (BEAKER) (test xbqq=722) 141 U/L 40-150 AST (SGOT) (BEAKER) (test ouvn=918) 21 U/L 5-34 ALT (SGPT) (BEAKER) (test blfm=656) 16 U/L 6-55 URINALYSIS W/ [id number] 20:42:00* Test Item Value Reference Range Comments COLOR (BEAKER) (test rbjr=157) Light Yellow CLARITY (BEAKER) (test grjd=695) Clear SPECIFIC GRAVITY UA (BEAKER) (test fdep=914) 1.005 1.001-1.035 PH UA (BEAKER) (test eaqm=480) 6.0 5.0-8.0 PROTEIN UA (BEAKER) (test rzfc=931) 30 mg/dL Negative GLUCOSE UA (BEAKER) (test mgso=694) Negative Negative KETONES UA (BEAKER) (test uzfk=883) Negative Negative BILIRUBIN UA (BEAKER) (test fcwy=630) Negative Negative BLOOD UA (BEAKER) (test ompq=069) Negative Negative NITRITE UA (BEAKER) (test nwxx=595) Negative Negative LEUKOCYTE ESTERASE UA (BEAKER) (test xipz=912) Small Negative UROBILINOGEN UA (BEAKER) (test suiq=688) 0.2 mg/dL 0.2-1.0 RBC UA (BEAKER) (test ojao=405) < /HPF WBC UA (BEAKER) (test arsg=625) 14 /HPF BACTERIA (BEAKER) (test xgqn=040) Many MUCUS (BEAKER) (test wumk=9288) Rare SQUAMOUS EPITHELIAL (BEAKER) (test phvm=308) 2 /HPF SOURCE(BEAKER) (test nfwa=6185) Urine, Clean Catch CT BRAIN WO [facility] [address], [place] [address] Patient Name: DAISY SNYDER MR #: [id number] : 1945 Age/Sex: 71/F Req #: [id number] Adm Physician: Ordered by: PAKO SALCEDO MD Report #: [id number] Location: ER Room/Bed: Procedure: [id number] CT/CT BRAIN WO Exam Date: 04/24/17 Exam Time: 0630 REPORT STATUS: Signed Exam: Head CT without contrast History: Altered mental status, hypoglycemia Comparison studies: Head CT 03/25/2015 Technique: Axial images were obtained from the skull base to the vertex. Coronal and sagittal images recons tructed from the axial data. Intravenous contrast: None Findings: Sc alp: No abnormalities. Bones: No fractures, blastic or lytic lesions. Sac : Frontal and parietal sulci are mildly prominent. Ventricles: Normal in size and configuration. No hydrocephalus. Extra-axial spaces: No masses, no fluid c ollection. Parenchyma: No mass, acute hemorrhage or acute or chronic co rtical vascular insults. A few scattered hypodensities in the supratentorial w roxanne matter are nonspecific but most compatible with chronic small vessel isch emic changes. Sellar/suprasellar region: No abnormalities. Craniocervical junction: Patent foramen magnum. No Chiari one malformation. Incidental fi ndings: Atherosclerotic calcifications in the carotid siphons and intradural vertebral arteries. Small nonspecific frothy secretions within a partially whit ged posterior right ethmoid air cell. Mild nonspecific mucosal thickening in t he left sphenoid sinus. IMPRESSION: 1. No acute intracranial abnor malities. 2. Mild chronic microvascular ischemic changes. 3. No significan t changes from the previous head CT of 03/25/2015. Signed by: Dr. Rachna lopez M.D. on 04/24/2017 7:28 AM Dictated By: RACHNA RAMOS MD Electron ically Signed By: RACHNA RAMOS MD on 04/24/17 0728 Transcribed By: CRISTINO farrar 04/24/17727 COPY TO: PAKO SALCEDO MD CHEST SINGLE (PORTABLE) [place] [address] Patient Name: DAISY SNYDER MR #: [id number] DO B: 1945 Age/Sex: 71/F Req #: [id number] Adm Physici an: Ordered by: PAKO SALCEDO MD Report #: [id number] Location: ER Room/ Bed: Procedure: [id number] DX/CHEST SINGLE (PORTABLE) Exam Date: 04/24/17 Exam Time: 0640 REPORT STA TUS: Signed PROCEDURE: CHEST SINGLE (PORTABLE) COMPARISON: [facility], DX, CHEST SINGLE (NOT PORTABLE), 07/19/2016, 11:49. INDICATIONS: AM S; LOW BLOOD SUGAR FINDINGS: LUNGS: No consolidations or edema. PLEURA: No effusions or pneumothorax. HEART T MEDIASTINUM: The heart is within normal size-limits. There is calcification within the aorta. BONES T SOFT TISSUES: No acute findings. Sternotomy wire sutures are intact. [place] screw overlying the right humeral head. CONCLUSION: No acute thoracic abnormality. Jovna Dior D.O. Dic tated by: Jovan Dior D.O. on 04/24/2017 at 8:17 Electronically approv ed by: Jovan Dior D.O. on 04/24/2017 at 8:17 Dictated By: JOVAN DIOR DO 6 Transcribed By: MIKI on 04/24/17816 COPY TO: PAKO SALCEDO MD
[2018-11-10] MEDS ORDERED: SODIUM CHLORIDE 0.9% 1000ML 500 ML IV STA (14:56)
[2018-11-10] MEDS ORDERED: SODIUM CHLORIDE 0.9% 1000ML 1,000 ML IV STA (14:56)
[2018-11-10] MEDS ORDERED: PANTOPRAZOLE 40 MG 10ML VIAL IV NR ×2 (15:00→15:45)
[2018-11-10] MEDS ORDERED: LEVALBUTEROL HCL SOLN NEBU 1.25 MG/3 ML NEB INH PRN (15:30)
[2018-11-10] MEDS ORDERED: PROTONIX 200MG/SODIUM CHLORIDE 0.9% 250 ML BAG IV SCH ×2 (15:30→15:45)
[2018-11-10] MEDS ORDERED: ONDANSETRON HCL INJ 2MG/ML 2ML 2 MG/ML VIAL IV PRN (15:30)
[2018-11-10] MEDS ORDERED: DEXTROSE 50% SYRINGE 50 ML IV PRN ×2 (15:30)
[2018-11-10] MEDS ORDERED: MORPHINE SULFATE 2 MG/ML SYR 1ML IV PRN (15:30)
[2018-11-10] MEDS ORDERED: IPRATROPIUM BROMIDE 0.02% 2.5 ML NEB NEB PRN (15:30)
[2018-11-10 15:42] LABS: BILIRUBIN,URINE NEGATIVE (NEGATIVE); CLARITY,URINE CLEAR (CLEAR); COLOR,URINE YELLOW (YELLOW); KETONES,URINE NEGATIVE (NEGATIVE); LEUKOCYTE ESTERASE ,URINE TRACE (NEGATIVE); NITRITE,URINE NEGATIVE (NEGATIVE); PROTEIN,URINE DIPSTICK TRACE (NEGATIVE); URINE UROBILINOGEN 0.2 mg/dL (0.2 - 1)
--- OUTSIDE RECORDS SUMMARY | 2018-11-10 15:42 | XMS REPORT | Clinical Summary ---
Author Author SURI [employer] Organization [facility] [employer] [facility] Address Unknown Phone Unavailable Care Team Providers Care Director Of Math Name Role Phone Peter Bob Paniagua PCP [...] PERIPHERAL ANGIOS & IVUS 10/26/2018 Atherosclerosis of grindstone 9:45 AM CDT coronary artery of grindstone heart without angina pectoris PAD (peripheral artery disease) (HCC) Case Notes (2)case POP6 CORONARY ANGIOS / PCI / 10/26/2018 Atherosclerosis of grindstone STENT 9:45 AM CDT coronary artery of grindstone heart without angina pectoris PAD (peripheral artery [...] ms QTC Calculatio n(Bazett) 425 ms P [place] 75 degrees R [place] 62 degrees T [place] 92 degrees Normal sinus rhythm Nonspecifi c [...] CDT) Activated Clotting Time 142Comment: TESTED AT [facility] sec [facility] [address] [id number] [facility] Specimen Blood Performing Organization Address City/State/Zipcode Phone Number [address] [phone] [facility]ENTER * RHYTHM STRIP - SCAN (09/25/2018 1:30 PM CDT) Only the most recent of 2 results within the time period is included. Narrative Performed At * CBC with platelet count + automated diff (09/20/2018 4:05 AM CDT) Only the most recent of 3 results within the time period is included. WBC 7.9 3.5 - 10.5 K/L [facility] RBC 4.40 3.93 - 5.22 M/L [facility] Hemoglobin 11.8 11.2 - 15.7 GM/DL [facility] Hematocrit 38.0 34.1 - 44.9 % [facility] MCV 86.4 79.4 - 94.8 fL [facility] MCH 26.8 25.6 - 32.2 pg [facility] MCHC 31.1 (L) 32.2 - 35.5 GM/DL [facility] RDW 15.2 (H) 11.7 - 14.4 % [facility] Platelets 196 150 - 450 K/CU MM [facility] MPV 10.1 9.4 - 12.3 fL [facility] nRBC 0 0 - 0 /100 WBC [facility] % Neutros 63 % [facility] % Lymphs 22 % [facility] % Monos 11 % [facility] % Eos 3 % [facility] % Baso 1 % [facility] # Neutros 4.99 1.56 - 6.13 K/L [facility] # Lymphs 1.76 1.18 - 3.74 K/L [facility] # Monos 0.83 (H) 0.24 - 0.36 K/L [facility] # Eos 0.25 0.04 - 0.36 K/L [facility] # Baso 0.06 0.01 - 0.08 K/L [facility] Immature 0 0 - 1 % [facility] Granulocytes-[facility] Specimen Blood Performing Organization Address City/[facility]/[place] [address] [facility] * Troponin I (09/20/2018 4:05 AM CDT) Only the most recent of 6 results within the time period is included. Troponin I <0.01 0.00 - 0.03 ng/mL [facility] Specimen Blood Narrative Performed At Troponin I (TnI) levels must be interpreted in the context of the presenting [facility] symptoms and the clinical findings. Elevated TnI levels indicate myocardial [facility] damage, but are not specific for ischemic heart disease. Elevated TnI levels are seen in patients with other cardiac conditions (including myocarditis and congestive heart failure), and slight TnI elevations occur in patients with other conditions, including sepsis, renal failure, acidosis, acute neurological disease, and persistent tachyarrhythmia. Performing Organization Address City/[facility]/Zipcode Phone Number [address] [address] [facility] * Vitamin D, 25-Hydroxy (09/20/2018 4:05 AM CDT) Vitamin D 25-Hydroxy 12.5 6.6 - 49.9 ng/mL [facility] Specimen Blood Narrative Performed At Effective 01/04/2017: Reference Range Change [facility] New: 6.6-49.9 ng/mL Previous: 13.0-47.8 ng/mL [facility] Recommended Vitamin D Target Range: 30.0-40.0 ng/mL Performing Organization Address City/[facility] Phone Number [address] * Phosphorus (09/20/2018 4:05 AM CDT) Only the most recent of 2 results within the time period is included. Phosphorus 4.0 2.3 - 4.7 mg/dL [facility] Specimen Blood Performing Organization Address [facility] Phone Number [address] * Magnesium (09/20/2018 4:05 AM CDT) Only the most recent of 4 results within the time period is included. Magnesium 1.8 1.6 - 2.6 mg/dL [facility] Specimen Blood Performing Organization Address [facility] Phone Number [address] * Hemoglobin A1c (09/20/2018 4:05 AM CDT) Hemoglobin A1C 6.5 (H) 4.3 - 6.1 % [facility] Specimen Blood Performing Organization Address City/[facility] [place] [place] [address] [phone] [place] [address] * Basic metabolic panel (09/20/2018 4:05 AM CDT) Only the most recent of 6 results within the time period is included. Sodium 134 (L) 136 - 145 meq/L [facility] Potassium 4.6 3.5 - 5.1 meq/L [facility] Chloride 95 (L) 98 - 107 meq/L [facility] CO2 30 (H) 22 - 29 meq/L [facility] BUN 24 (H) 7 - 21 mg/dL [facility] Creatinine 0.99 0.57 - 1.25 mg/dL [facility] Glucose 167 (H) 70 - 105 mg/dL [facility] Calcium 9.3 8.4 - 10.2 mg/dL [facility] EGFR 55Comment: ESTIMATED GFR IS mL/min/1.73 sq m [facility] NOT ACCURATE CREATININE [facility] CLEARANCE IN PREDICTING GLOMERULAR FILTRATION RATE. ESTIMATED GFR IS NOT APPLICABLE FOR DIALYSIS PATIENTS. Specimen Blood Performing Organization Address City/State/Zipcode Phone Number [phone] [place] [address] [phone] * POC-Glucose meter (09/19/2018 6:26 PM CDT) Only the most recent of 13 results within the time period is included. POC-Glucose Meter 119 (H)Comment: TESTED AT 70 - 110 mg/dL [address] [address] Specimen Blood Performing Organization Address City/State/Zipcode Phone Number [phone] [place] [address] [phone] [address] * XR chest 1 view portable / bedside (09/19/2018 10:26 AM CDT) Only the most recent of 2 results within the time period is included. Specimen Narrative Performed At FINAL REPORT [facility] CLINICAL HISTORY: CHEST PAIN NUMBNESS TECHNIQUE: 1 [...] MD Report Verified Date/Time:09/19/2018 11:01:26 Reading Location: [facility] Radiology Reading Room Procedure Note Interface, External [...] Report Verified Date/Time: 09/19/2018 11:01:26 Reading Location: [facility] Radiology Reading Room Performing Organization Address City/State/Zipcode Phone Number [employer] * CT brain without IV contrast (09/19/2018 10:18 AM CDT) Only the most recent of 3 results within the time period is included. Specimen Narrative Performed At FINAL REPORT [facility] CT, BRAIN, WITHOUT CONTRAST INDICATION: Paralysis / [...] MD Report Verified Date/Time:09/19/2018 10:21:30 Reading Location: [facility] B1 C013V Neuro Reading Room Procedure Note [...] Report Verified Date/Time: 09/19/2018 10:21:30 Reading Location: [address] Neuro Reading Room Performing Organization Address City/State/Zipcode Phone Number [employer] * Hepatic function panel (09/19/2018 10:01 AM CDT) Only the most recent of 2 results within the time period is included. Protein, Total 7.5 6.0 - 8.3 gm/dL [facility] Albumin 3.8 3.5 - 5.0 g/dL [facility] Total Bilirubin 0.5 0.2 - 1.2 mg/dL [facility] Bilirubin, Direct 0.3 0.1 - 0.5 mg/dL [facility] Alkaline Phosphatase 161 (H) 40 - 150 U/L [facility] AST 21 5 - 34 U/L [facility] ALT 15 6 - 55 U/L [facility] Specimen Blood Performing Organization Address City/State/Zipcode Phone Number [phone] [address] [place] [address] [facility] * ECG/EKG Interpretation (09/19/2018 9:40 AM [...] 348 ms QTC Calculation(Bazett) 425 ms P [place] 75 degrees R [place] 62 degrees T [place] 92 degrees Normal sinus rhythm Poor R [...] 348 ms QTC Calculation(Bazett) 425 ms P [place] 75 degrees R [place] 62 degrees T [place] 92 degrees Normal sinus rhythm Poor R wave progression Abnormal ECG When compared with ECG of 29-JUN-2018 20:23, QRS axis has shifted to the left. Confirmed by Anna KELLEY MICHAEL ([id number]) on 09/20/2018 7:48:19 AM Performing Organization Address City/State/Zipcode Phone Number [employer] [facility] * PERIPHERAL VASCULAR REPORT - SCAN (07/02/2018 9:10 PM CDT) Narrative Performed At * 2D Echo W/Doppler(CW/PW/Color) (07/02/2018 3:54 PM CDT) Ejection Fraction [facility] Specimen Narrative Performed At Transthoracic Echocardiography Report (TTE) [facility] Demographics [facility] Patient Name DAISY JACOB Date of Study 07/02/2018 PENNIE [id number] Female Visit Number [id number] Room Number 1434 Number Date 4Referring BirthPhysician Age72 year(s)Host/Hostess [employer] Lo Kyle, NB, RDCS,RVT,RDMS AnalystAlsantana Pires InterpretingChung [...] Study 07/02/2018 PENNIE Gender Female Visit Number [id number] Race Unknown Room Number 1434 Number Date of 1945 Referring Physician Age 72 year(s) Host/Hostess [employer] Lo Kyle, SUSANA, RDCS,RVT,RDMS Threat Monitoring Analyst Jarocho Hogue Physician Procedure Type of Study [...] cm Performing Organization Address City/State/Zipcode Phone Number [facility] BRITTANIE BLOOM * Venous doppler legs bilateral (07/01/2018 10:16 PM CDT) Ejection Fraction [facility] Specimen Impressions Performed At Right Impression [facility] 1. There is no deep venous obstruction in the common femoral, profunda [facility] femoral, femoral, popliteal, posterior tibial or [...] PV LAB - Lower Extremities DVT Study [facility] Demographics [facility] Patient Name DAISY JACOB Date of Study07/01/2018 PENNIE [id number] Visit Number [id number] Female Accession Number [id number] of Birth1945 [facility] [id number] Physician SonographerYury Ricoterpreting Lorne Ray Procedure Type [...] Study 07/01/2018 PENNIE Age 72 Visit Number [id number] Gender Female Accession Number [id number] Date of 1945 Referring [facility] Room Number 1434 Physician Host/Hostess Restaurant Yury Severino Interpreting Physician ADRIANA Ray Procedure [...] are measured in cm Performing Organization Address City/[facility] Phone Number [facility] * TSH/Free T4 If Indicated (06/30/2018 4:57 AM CDT) TSH 4.82 0.35 - 4.94 uIU/mL [facility] Specimen Blood Performing Organization Address [facility] Phone Number [address] * Potassium (06/29/2018 11:12 PM CDT) Potassium 5.5 (H) 3.5 - 5.1 meq/L [facility] Specimen Blood Performing Organization Address [facility] Phone Number [address] * B-type natriuretic peptide (06/29/2018 11:12 PM CDT) BNP 1,785 (H) 0 - 100 pg/mL [facility] Specimen Blood Performing Organization Address [facility] Phone Number [address] after 11/09/2017 Insurance Payer Benefit Subscriber ID Type Phone Address Plan / Group KELSEYCARE KELSEYCARE xxxxxxxxxxx MEDICARE ADV CIGNA - MGD CARE CIGNA xxxxxxxxxxx HMO/POS HMO/POS/OP EN ACCESS Advance Directives For more information, please contact: [address] [address] Date Inactivated Comments Code Status Date Activated 10/26/2018 9:29 PM Full Code 10/26/2018 6:46 AM This code status was determined by: Patient 09/20/2018 8:16 PM Full Code 09/19/2018 1:49 PM This code status was determined by: Patient
[2018-11-10 15:43] LABS: BASOPHILS # (AUTO) 0.1 (0.0-0.1); BASOPHILS % 0.2 % (0.0-1.0); EOSINOPHILS % 0.2 % (0.0-6.0); HEMATOCRIT 31.6 % (34.2-44.1); HEMOGLOBIN 10.5 g/dL (12.0-16.0); LYMPHOCYTES # (AUTO) 1.5 (1.0-3.2); LYMPHOCYTES % 6.7 % (18.0-39.1); MEAN CORPUSCULAR HEMOGLOBIN 28.2 pg (28-32); MEAN CORPUSCULAR HGB CONC 33.2 g/dL (31-35); MEAN CORPUSCULAR VOLUME 84.9 fL (81-99); MONOCYTES # (AUTO) 2.3 (0.2-0.8); MONOCYTES % 10.6 % (4.4-11.3); NEUTROPHILS # (AUTO) 17.9 (2.1-6.9); NEUTROPHILS % 81.5 % (38.7-80.0); PLATELET COUNT 224 x10e3/uL (140-360); RED BLOOD COUNT 3.72 x10e6/uL (3.6-5.1)
[2018-11-10 15:52] LABS: BACTERIA,URINE MANY /HPF; EPITHELIAL CELLS,URINE MANY /LPF; INR 1.05; PROTHROMBIN TIME 14.2 seconds (11.9-14.5); RENAL EPITHELIAL CELLS,URINE MODERATE
[2018-11-10 15:53] LABS: PARTIAL THROMBOPLASTIN TIME 29.7 seconds (23.8-35.5)
[2018-11-10 16:00] LABS: ALBUMIN/GLOBULIN RATIO 0.7 (0.8-2.0); ANION GAP 14.2 mmol/L (8-16); CALCIUM 8.9 mg/dL (8.4-10.2); CREATININE, SERUM 1.19 mg/dL (0.57-1.11); MAGNESIUM 2.1 MG/DL (1.3-2.1); POTASSIUM 4.2 mmol/L (3.5-5.1)
[2018-11-10] MEDS: SODIUM CHLORIDE 0.9% 1000ML 1,000 ML IV SCH (16:06)
[2018-11-10] MEDS: INSULIN REGULAR, HUMAN 100 UNIT/1 ML 3ML VIAL SQ SCH ×2 (16:15→21:00)
[2018-11-10 16:19] LABS: CREATINE KINASE MB 1.9 ng/mL (0-5.0); THYROID STIMULATING HORMONE 3.952 uIU/mL (0.350-4.940)
[2018-11-10] MEDS ORDERED: IPRATROPIUM BROMIDE 0.02% 2.5 ML NEB NEB NR (16:30)
[2018-11-10] MEDS ORDERED: LEVOFLOXACIN 500MG/D5W 100ML 100 ML IV ONE (16:30)
[2018-11-10] MEDS ORDERED: METRONIDAZOLE 500MG/NS 100ML 100 ML IV ONE (16:30)
[2018-11-10] MEDS ORDERED: LEVALBUTEROL HCL SOLN NEBU 1.25 MG/3 ML NEB INH NR (16:30)
[2018-11-10] MEDS ORDERED: INSULIN REGULAR, HUMAN 100 UNIT/1 ML 3ML VIAL SQ SCH (16:30)
[2018-11-10] MEDS ORDERED: METHYLPREDNISOLONE SOD SUCC 125 MG/2ML VIAL IV NR (16:30)
--- NOTE | 2018-11-10 16:30 | Diagnostic Imaging Report ---
EXAM: CT Abdomen and Pelvis WITHOUT contrast INDICATION: ^STONE PROTOCOL ^[id number] ^1545 ^Y COMPARISON: None. TECHNIQUE: Abdomen and pelvis were scanned utilizing a multidetector helical scanner from the lung base to the pubic symphysis without administration of IV contrast. Absence of intravenous contrast decreases sensitivity for detection of focal lesions and vascular pathology. Coronal and sagittal reformations were obtained. Stone protocol is performed. IV CONTRAST: None. ORAL CONTRAST: Water RADIATION DOSE: Total DLP: 573 mGy*cm Estimated effective dose: (DLP x 0.015 x size factor) mSv COMPLICATIONS: None FINDINGS: LINES and TUBES: None. LOWER THORAX: Cardiomegaly. Severe calcifications of the coronary arteries. Partially visualized venous graft to the RCA which appears severely calcified and dilated. Subsegmental atelectasis in both lung bases. HEPATOBILIARY: No focal hepatic lesions. No biliary ductal dilation. GALLBLADDER: No radio-opaque stones or sludge. No wall thickening. SPLEEN: No splenomegaly. PANCREAS: No focal masses or ductal dilatation. ADRENALS: No adrenal nodules KIDNEYS/URETERS: There are 3 up to 3 mm calcified stones in the right kidney, for example on coronal image 74, 78 and 80. Moderate dilatation of the right renal pelvis and proximal ureter and mild hydronephrosis. There appears to be severe stricture of the proximal ureter at the ureteropelvic junction, better seen on coronal image 71 which may reflect chronic scarring. The mid and distal ureter is not visualized. 2 mm calcified stone in the inferior pole of the left kidney on coronal image 75. There are several vascular calcifications in the left kidney. 4 mm exophytic hyperdense cyst in the inferior pole of the left kidney on image 75 coronary much is to a small to characterize but may represent a hemorrhagic cyst. No calcified stones in the left ureter. GI TRACT: No bowel dilatation or wall thickening. No bowel obstruction. Scattered diverticulosis throughout the sigmoid colon. The appendix is mildly prominent in the proximal segment measuring 0.8 cm but is normal distally measuring 0.6 cm. However, this is surrounding by moderate amount of fat stranding which extends into the pericecal region. The terminal ileum appears unremarkable. PELVIC ORGANS/BLADDER: Unremarkable. LYMPH NODES: No lymphadenopathy. VESSELS: Aneurysm of the infrarenal abdominal aorta measuring up to 4.7 cm in diameter. Moderate atherosclerotic calcifications of the abdominal aorta, pelvic arteries, and mesenteric arteries. PERITONEUM / RETROPERITONEUM: No free air or fluid. BONES: Mild degenerative changes of the lumbar spine. SOFT TISSUES: Unremarkable. IMPRESSION: 1. Moderate amount of fat stranding surrounding the cecum extending into the base of the appendix, which is mildly prominent proximally. Findings are more suggestive of colitis with extension of the inflammatory changes seen to the proximal appendix rather than acute appendicitis. Recommend surgical consultation and consider follow up CT abdomen/pelvis in 48-72 hours. 2. No free air of free fluid in the abdomen and pelvis. 3. Right nephrolithiasis. 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 4. Aneurysm of the infrarenal abdominal aorta (4.7 cm). Recommend follow-up in 6 months. Signed by: Dr. Mely Santana M.D. on 11/10/2018 4:27 PM
--- NOTE | 2018-11-10 16:32 | Diagnostic Imaging Report ---
EXAMINATION: CHEST SINGLE (PORTABLE) INDICATION: ^ERMD ORDER ^[id number] ^1557 ^Y COMPARISON: Chest radiograph 04/24/2017 FINDINGS: AP view TUBES and LINES: None. LUNGS: Lungs are well inflated. Bibasilar atelectasis, stable. Mild central pulmonary vascular congestion. PLEURA: No pleural effusion or pneumothorax. HEART AND MEDIASTINUM: Mild enlarged cardiac silhouette, but decreased when compared to prior exam. Moderate atherosclerotic calcifications of the aortic arch. BONES AND SOFT TISSUES: Intact median sternotomy wires. Surgical screws overlying the right humeral head. Soft tissues are unremarkable. UPPER ABDOMEN: No free air under the diaphragm. IMPRESSION: Stable bibasilar atelectasis. Bilateral central pulmonary vascular congestion. Signed by: Dr. Mely Santana M.D. on 11/10/2018 4:28 PM
[2018-11-10] MEDS: PANTOPRAZOL 40MG/SOD CHL 0.9% 50 ML IV SCH ×2 (17:26→22:45)
[2018-11-10] MEDS ORDERED: METHYLPREDNISOLONE SOD SUCC 40 MG/ML VIAL 1ML IV SCH (18:00)
[2018-11-10] MEDS: METRONIDAZOLE 500MG/NS 100ML 100 ML IV SCH (18:00)
--- NOTE | 2018-11-10 18:25 | NUR ---
RECD PT FROM ER VIA STRETCHER,AAOX3,DNIES PAIN,O2 2L NC IN PLACE,TELE ,
--- NOTE | 2018-11-10 19:10 | NUR ---
Completed BS rounds with morning nurse. Pt alert and orient to name. Denies pain at this time. Call cole within reach. Bed low and locked. Will continue to monitor.
[2018-11-10 20:00] VITALS: BP 124/58
[2018-11-10 20:04] VITALS: BP 126/52
--- NOTE | 2018-11-10 20:30 | NUR ---
Nursing assessment completed. Pt alert to name, place, time, and diagnosis: Hypotension. Skin warm, dry, scaly, and thin. Sacrum redness, stage I. Denies pain or discomfort at this time. O2 @2L via nc. Lungs diminished in RLL, LLL. Cap refill immediate. Per Pt last BM Th11/11 brown and loose. Pt c/o urinary frequency, with some incontinent episodes. BC, UC pending results. No acute distress noted. Call cole within reach. Bed low and locked. Will continue to monitor.
[2018-11-10 20:32] VITALS: BP 126/52
[2018-11-10 21:16] LABS: HYPOCHROMASIA SLIGHT; LYMPHOCYTES % (MANUAL) 6 % (19-48); MONOCYTES % (MANUAL) 15 % (3.4-9.0); NEUTROPHILS % (MANUAL) 79 % (40-74)
[2018-11-10 21:17] LABS: PLATELET ESTIMATE ADEQUATE; PLATELET MORPHOLOGY COMMENT NORMAL; RBC MORPHOLOGY COMMENT NORMAL
[2018-11-11] VITALS (7 sets, daily range): BP systolic 105–143; BP diastolic 51–61
--- NOTE | 2018-11-11 01:10 | History and Physical ---
PRIMARY CARE DOCTOR: Dr. Rc Green. HOSPITAL PHYSICIAN: Ryann Bonilla MD CHIEF COMPLAINT: Hypotension. HISTORY OF PRESENT ILLNESS: Ms. Jacob is a pleasant 73-year-old female with hypotension. The patient with heart surgery in 1993 with a bypass. The patient had cardiac catheterization two weeks ago demonstrating reportedly "two good bypasses, one bad bypass and one [place] coronary vessel that was 100% occluded" as per the daughter, who has a nursing background. The details were not totally known and I do not see any official reports. The patient was on the phone yesterday with her oxygen furnace operator as she had recent blood work that was done with some semi-critical findings. On assessment, the patient had low blood pressure, which was about 90-100, which is below her baseline. Furthermore, the patient had some malaise. She was sent to the hospital for evaluation. Sodium was 128. There was a 21.9 white count. There is also some abdominal symptoms as well and she ended up having abdominal CT, which showed some remarkable findings as well. She was admitted. PAST MEDICAL HISTORY: COPD on Advair and ProAir inhalers at home. Obstructive sleep apnea on nocturnal oxygen 2 L/minute as she cannot tolerate CPAP. CABG in 1993. Coronary artery disease, CHF, CKD, cholecystectomy, hysterectomy, appendectomy, diabetes, and hypertension. MEDICATIONS: Medication list reviewed per the chart record. ALLERGIES: THERE ARE NONE THAT ARE KNOWN FOR MEDICINES. SOCIAL HISTORY: No alcohol. No drugs. The patient smoked from age [age], active. One pack per day. She at [employer]. She lives independently and walks with no assistive device, although she does have a walker for backup use. She gets up daily. Exercise tolerance at baseline is 1 to 2 rooms distance limited by pain, arthritis. FAMILY HISTORY: Noncontributory. REVIEW OF SYSTEMS: GENERAL: No weight changes. OPHTHALMOLOGIC: No double vision. ENT: No mouth ulcers. ENDOCRINE: No thyroid disease. PULMONARY: No asthma. CARDIAC: No recent heart attack. GI: No diarrhea. : No blood in the urine. DERMATOLOGIC: No rash. MUSCULOSKELETAL: There is some degenerative joint disease. NEUROLOGIC: No seizures. OBJECTIVE: VITAL SIGNS: Afebrile, vital signs noted and reviewed per the chart record. GENERAL: In no acute distress, calm in bed. HEENT: Normocephalic and atraumatic. NECK: Supple. Throat midline. LUNGS: Bilateral air entry, decreased with no rhonchi, no wheezes. There is kyphosis noted. CARDIOVASCULAR: S1, S2. No murmurs, rubs, or gallops. ABDOMEN: Soft and nontender for the superior quadrants. In lower quadrant, there is some tenderness and hernia that is palpated. There is tenderness in the right lower quadrant. EXTREMITIES: No edema. INTEGUMENT: No rash. No purpura. LABORATORY DATA: Labs reviewed per the chart record. Include the leukocytosis, 32 hematocrit, 224 platelets. 4.2 potassium, 27 bicarbonate, 31 BUN, 1.19 creatinine. LFTs with alkaline phosphatase 153 with other normal LFTs. INR is 1.05. Chest x-ray mostly clear. CT abdomen and pelvis with hydronephrosis, nephrolithiasis, there is dilated appearance of ureters mild to moderate amount, possible stricture at proximal ureter at UP junction. Furthermore, there is some fat stranding in the pericecal region and mild prominent colonic wall thickening. There is also some vascular issues as well. IMPRESSION AND PLAN: 1. Leukocytosis, treated sepsis. More likely colitis. Cannot rule out urinary tract infection with multiple abnormalities. 2. Abdominal pain, lower quadrants. Ventral hernia, but to my knowledge, no strangulation. 3. Hydronephrosis. 4. Multiple nephrolithiasis. 5. Infrarenal abdominal aortic aneurysm. 6. Chronic smoker. 7. Obstructive sleep apnea on nocturnal oxygen. 8. Chronic obstructive pulmonary disease. 9. Kyphosis. 10. Coronary artery disease, unclear . History of coronary artery bypass graft. 11. Diabetes. 12. Chronic kidney disease. 13. Congestive heart failure. 14. Hypertension. 15. Baseline debility from pain and arthritis with decreased walking distance. 16. Anemia. Get consult. Get GI consult. Surgical consult. Antibiotics empirically. Other support treatment including initial IV fluid. Repeat sodium tomorrow. Repeat and ensure the blood counts are stable. Cardiology consult to get old records expedited and decide if there is any cardiac issues that need to be taking care. Thank you very much, Dr. Green, for allowing Dr. Bonilla and I had the chance to participate in the care of Ms. Jacob. Please call for questions. MD VÍCTOR Walker/SHY /[id number]
[2018-11-11] MEDS: PANTOPRAZOL 40MG/SOD CHL 0.9% 50 ML IV SCH ×3 (03:30→18:33)
[2018-11-11] MEDS: METRONIDAZOLE 500MG/NS 100ML 100 ML IV SCH ×4 (05:37→18:00)
--- NOTE | 2018-11-11 05:49 | Diagnostic Imaging Report ---
A single frontal view of the chest. HISTORY: CHF COMPARISON: Chest radiograph November 10, 2018. DISCUSSION: Portable technique, limits sensitivity of the exam. Overlying monitoring leads. Tubes/Lines: None Lungs and pleura: The lungs remain hyperinflated. No evidence of a consolidative pneumonia or pulmonary alveolar edema. No definite pleural effusion or pneumothorax is identified. Heart and mediastinum: The cardiac silhouette appears unchanged. Persistent enlargement of the central pulmonary arteries. Bones and soft tissues: Multiple median sternotomy wires. IMPRESSION: 1. Hyperinflated lungs, correlate for obstructive lung disease. 2. Findings suggestive of increased pulmonary arterial pressure, which can be associated with obstructive lung disease. Signed by: Dr. Jared Kaufman D.O., M.M.M. on 11/11/2018 5:46 AM
[2018-11-11] MEDS: SODIUM CHLORIDE 0.9% 1000ML 1,000 ML IV SCH ×3 (06:28→21:17)
--- NOTE | 2018-11-11 06:57 | NUR ---
Rounds completed with morning nurse. Pt alert and orient. Denies pain at this time. No acute distress noted. Call cole within reach.
[2018-11-11 07:26] LABS: BASOPHILS % 0.1 % (0.0-1.0); HEMATOCRIT 33.9 % (34.2-44.1); HEMOGLOBIN 10.6 g/dL (12.0-16.0); LYMPHOCYTES # (AUTO) 0.7 (1.0-3.2); LYMPHOCYTES % 3.4 % (18.0-39.1); MEAN CORPUSCULAR HEMOGLOBIN 27.7 pg (28-32); MEAN CORPUSCULAR HGB CONC 31.3 g/dL (31-35); MEAN CORPUSCULAR VOLUME 88.5 fL (81-99); MONOCYTES # (AUTO) 0.8 (0.2-0.8); MONOCYTES % 3.8 % (4.4-11.3); NEUTROPHILS # (AUTO) 18.4 (2.1-6.9); NEUTROPHILS % 91.9 % (38.7-80.0); PLATELET COUNT 226 x10e3/uL (140-360); RED BLOOD COUNT 3.83 x10e6/uL (3.6-5.1); RED CELL DISTRIBUTION WIDTH 14.6 % (11.7-14.4)
[2018-11-11] MEDS: INSULIN REGULAR, HUMAN 100 UNIT/1 ML 3ML VIAL SQ SCH ×4 (07:30→21:00)
--- NOTE | 2018-11-11 07:30 | NUR ---
PT C/O HEADACHE MEDICATED
--- NOTE | 2018-11-11 07:30 | NUR ---
PT IN BED AWAKE VERY IRRITABLE ,STATES DID NOT SLEEP WELL,DENIES PAIN
--- NOTE | 2018-11-11 07:44 | NUR ---
DR SANTOS HERE,WENT TO PT ROOM AND PT VERY RUDE TO PHYSICAN,STATED TO GET OUT OF HER ROOM AND DR SANTOS PROCEDED TO TELL HER WHY HE WAS CONSULTED,AND PT CONTINUED TO YELL AT DR SANTOS.PT STATED SHE SHOULD BE WITH A LUISITO PHYSICAN,DR SANTOS TRIED TO EXPLAIN TO PT BE SHE INSISTED HE LEAVE.
[2018-11-11 07:50] LABS: ALBUMIN 2.9 g/dL (3.5-5.0); ALBUMIN/GLOBULIN RATIO 0.7 (0.8-2.0); ANION GAP 13.6 mmol/L (8-16); CALCIUM 9.6 mg/dL (8.4-10.2); CREATININE, SERUM 0.98 mg/dL (0.57-1.11); POTASSIUM 4.6 mmol/L (3.5-5.1)
--- NOTE | 2018-11-11 08:00 | NUR ---
SPOKE WITH PT DAUGHTER INFORMED PT REFUSED TO SEE DR SANTOS
[2018-11-11] MEDS: ACETAMINOPHEN 325 MG TAB PO PRN (08:32)
[2018-11-11] MEDS: ATORVASTATIN 20 MG TAB PO SCH (09:00)
[2018-11-11] MEDS: MONTELUKAST SODIUM 10 MG TAB PO SCH (09:00)
[2018-11-11] MEDS: CILOSTAZOL 100 MG TAB PO SCH ×2 (09:00→17:00)
[2018-11-11] MEDS: GABAPENTIN 300 MG CAP PO SCH ×2 (09:00→17:00)
[2018-11-11] MEDS: ASPIRIN 325 MG TAB PO SCH (09:00)
[2018-11-11] MEDS: METOCLOPRAMIDE HCL 10 MG TAB PO SCH ×2 (09:00→17:30)
[2018-11-11] MEDS: METOPROLOL TARTRATE 25 MG TAB PO SCH ×2 (09:00→17:00)
[2018-11-11 09:08] LABS: CREATINE KINASE 55 IU/L (29-168)
--- NOTE | 2018-11-11 11:00 | NUR ---
DR AYALA HERE NO NEW ODRERS
--- NOTE | 2018-11-11 11:15 | NUR ---
SPOKE WITH DR SALGADO RE;UROLOGY CONSULT ORDERS TO CONSULT DR VILLAR
--- NOTE | 2018-11-11 12:28 | Consultation ---
DATE OF CONSULTATION: 11/11/2018 REASON FOR CONSULTATION: Right-sided colitis. HISTORY OF PRESENT ILLNESS: The patient is a 73-year-old female, admitted through the emergency room following a visit to her pot puller at [facility], after which apparently she was found to have low blood pressure and leukocytosis, reason for which she was told to come to the emergency room. The patient relates that two weeks ago, she had a cardiac cath, and shortly after that she had some diarrhea and abdominal pain, which resolved. She has a history of colitis in the past. At the time of her admission to [facility], she denies any abdominal pain, any diarrhea, any GI symptoms. The CT scan with oral and without IV contrast performed at [facility] revealed findings consistent of right-sided colitis. She has a 4.7 AAA. She has right-sided hydronephrosis and nephrolithiasis. She has history of open cholecystectomy , hysterectomy and CABG. PAST MEDICAL HISTORY: Complex with severe coronary artery disease, status post cardiac bypass. According to her history, she states that her pot puller told her that her cardiac cath performed two weeks ago was "no good," but she does not know what the details of that.She is diabetic.The rest of the medical history is well documented by Doctor Rice. PHYSICAL EXAMINATION: GENERAL: Reveals a 73-year-old female, she is awake, alert, in no acute distress. She is somewhat of a poor historian and her daughter assists with the interrogation. VITAL SIGNS: Stable. She denies any abdominal symtoms at this time. HEAD, EYES, EARS, AND THROAT: Reveals no acute process. ABDOMEN: Obese, protuberant, but soft and nontender. There is a reducible umbilical hernia. There is a healed right upper quadrant cholecystectomy scar as well as a midline infraumbilical scar. ADMISSION LABORATORIES: Admission white count was 21,000, admission hematocrit was 32, platelet count was normal. Admission electrolytes are sodium 132, normal potassium. Her blood sugar is 249. Admission chest x-rays reveal some stable basilar atelectasis. ASSESSMENT: Right-sided colitis of unclear etiology. The patient has a history of colitis in the past. She had cardiac cath two weeks ago showing severe coronary artery disease. At this point, there is absolutely no surgical condition. She has a multitude of medical problems. GI evaluation is pending. Urology has been consulted because of the right-sided hydronephrosis. We will follow the patient along with you in case if there is any surgical condition. Thanks. MD SANDRA English/SHY /[id number] MTDJun
--- NOTE | 2018-11-11 12:36 | NUR ---
SPOKE WITH DR VILLAR ANSWERING SERVICE
--- NOTE | 2018-11-11 14:48 | Consultation ---
DATE OF CONSULTATION: Urology Consultation CHIEF COMPLAINT AND REASON FOR CONSULTATION: Hydronephrosis. HISTORY OF PRESENT ILLNESS: Mrs. Jacob is a very combative 73-year-old female patient. The patient was interviewed in the presence of a nurse, Mrs. Jacob, same last name with the patient, not related. The patient was admitted to Dr. Rice service by the emergency room with kidney stones, hydronephrosis, clinical signs of sepsis. The patient denied dysuria. Denied gross hematuria. Currently, appears comfortable. Upon stating that I am not in [facility] and not in Network Urologist, the patient lashed out at me stating I was throwing the doctors under the bus. She then fired me and terminated the care. PAST MEDICAL HISTORY: Unknown. MEDICATIONS: Reviewed on chart. ALLERGIES: DENIED TO NURSING. REVIEW OF SYSTEMS: Attempted, unable to obtain secondary to patient noncompliance. PHYSICAL EXAMINATION: GENERAL: Elderly, combative female patient. Currently, she is afebrile. Stable vital signs. HEENT: Sclerae anicteric. NECK: Supple. back symmetric ABDOMINAL: per nursing she has denied CVAT. : Normal external female appearance. EXTREMITIES: She moves all four extremities. PSYCH: combative and very aggressive behavior. SKIN: Normal color. PERTINENT LABORATORY DATA: CT scan revealing multiple 3 mm stones, right-sided hydronephrosis, 2 mm left lower pole stone, 4 mm left renal cyst, 4.7 cm abdominal aortic aneurysm. Hemoglobin 10, hematocrit 33, platelet count 226,000, and white cell count 20,000. Urinalysis 6 to 10 reds, 6 to 10 whites. IMPRESSION: 1. Hydronephrosis. 2. Bilateral calculi. 3. Left renal cyst. 4. Abdominal aortic aneurysm. 5. Anemia. 6. Urinary tract infection, present on admission. 7. Microscopic hematuria. PLAN In the presence of the nurse as a witness even with the patient terminated care, explained to her she has hydronephrosis with blocked kidney and signs of urinary tract infection. Recommend emergent decompression. Simply trying to explain the patient that we are not in Network with Sarah. She became extremely aggressive, lashing out at everybody in the room. The patient terminated care. We will sign off. MD MELONY Whalen/MODL /[id number] MTDD
[2018-11-11 16:09] LABS: CREATINE KINASE MB 1.8 ng/mL (0-5.0)
[2018-11-11] MEDS: LEVOFLOXACIN 500MG/D5W 100ML 100 ML IV SCH (17:30)
--- NOTE | 2018-11-11 18:35 | NUR ---
SPOKE WIH DR VILLAR WILL SEE PT IN AM,DENIES PAIN
--- NOTE | 2018-11-11 22:12 | NUR ---
Cardiology Consult Dictation# [id number]
[2018-11-12] VITALS (9 sets, daily range): BP systolic 107–120; BP diastolic 52–92
--- NOTE | 2018-11-12 00:39 | NUR ---
[facility] PHYSICIAN: Ryann Bonilla MD DATE OF ENCOUNTER 11/11/18 SUBJECTIVE: less abd pain feels better IVF 100/hr PPI IV in place CXR still with clear lungs REVIEW OF SYSTEMS: no headaches, no rash OBJECTIVE: VITAL SIGNS: vital signs noted and reviewed per the chart record. GENERAL: NAD, calm in bed. HEENT: Normocephalic and atraumatic. NECK: Supple. Throat midline. LUNGS: Bilateral air entry decreased. no rhonchi. kyphosis CARDIOVASCULAR: S1, S2. No murmurs, rubs, or gallops. ABDOMEN: Soft and mild discomfort at lower quadrants, better. hernia EXTREMITIES: No edema. no cyanosis INTEGUMENT: No rash. No purpura. LABORATORY DATA: k 4.6 cr .098, 20 wbc, 34 hct. IMPRESSION AND PLAN: 1. Leukocytosis, treat as sepsis. More likely colitis. Cannot rule out urinary tract infection with multiple abnormalities. 2. Abdominal pain, lower quadrants. Ventral hernia contributive possibly 3. Hydronephrosis. 4. Multiple nephrolithiasis. 5. Infrarenal abdominal aortic aneurysm. 6. Chronic smoker. 7. Obstructive sleep apnea on nocturnal oxygen. 8. Chronic obstructive pulmonary disease. 9. Kyphosis. 10. Coronary artery disease. hx CABG 11. Diabetes. 12. Chronic kidney disease. 13. Congestive heart failure. 14. Hypertension. 15. Baseline debility from pain and arthritis with decreased walking distance. 16. Anemia. Consult for hydronephrosis GI consult + Surgical consults appreciated. Antibiotics patient better, will stop IVF per patient wishes Repeat sodium tomorrow. CBC AM Thank you very much, Dr. Green, for allowing Dr. Bonilla and I had the chance to participate in the care of Ms. Jacob. Please call for questions.
[2018-11-12] MEDS: ACETAMINOPHEN 325 MG TAB PO PRN ×3 (00:40→11:12)
--- NOTE | 2018-11-12 01:59 | Consultation ---
DATE OF CONSULTATION: 11/11/2018 Cardiology Consultation REQUESTING PHYSICIAN: Lobo Rice MD. REASON FOR CONSULTATION: Coronary artery disease. HISTORY OF PRESENT ILLNESS: This is a 73-year-old with history of coronary artery disease, status post 3-vessel CABG in 1993, congestive heart failure, hypertension, hyperlipidemia, diabetes mellitus, COPD, and chronic kidney disease, who was instructed to present to the ER due to abnormal labs. The patient reports she had been feeling poorly for the last week with episodes of diarrhea and abdominal pain. She saw her knitting supervisor in the office on Monday and was noted to be hypotensive to the 90 systolic. Labs were performed. She was then called yesterday morning and instructed to present to the ER due to abnormal lab results. On initial evaluation, she was found to have white count of 21.91 with hemoglobin of 10.5. Sodium of 128 and creatinine 1.19. BNP was elevated at 108. CT imaging was performed given her abdominal complaints and revealed fat stranding surrounding the cecum extending into the base of the appendix, findings were suggestive of colitis with extension of the inflammatory changes seen to be a proximal appendix rather than acute appendicitis. Mild hydronephrosis and aneurysm of the infrarenal abdominal aorta were noted. The patient was therefore admitted for further evaluation. Cardiology consultation regarding the patient's coronary artery disease. The patient denies any cardiac symptoms. She denies any chest pain, shortness of breath, palpitations, orthopnea, or PND. She does endorse chronic lower extremity edema. REVIEW OF SYSTEMS: Negative, except as per HPI. PAST MEDICAL HISTORY: 1. Coronary artery disease, status post 3-vessel CABG. Recent cardiac catheterization revealed heavily diseased and calcified LAD with patent SVG to diagonal. The circumflex is chronically occluded and fed via lixe-qi-wwnh and cgzyf-yh-jvxq collaterals. The RCA is chronically occluded with an aneurysmal SVG to RCA graft patent. 2. Congestive heart failure. 3. Diabetes mellitus. 4. Hypertension. 5. Hyperlipidemia. 6. COPD. 7. Chronic kidney disease. PAST SURGICAL HISTORY: 1. CABG. 2. Hysterectomy. 3. Cholecystectomy. 4. Tonsillectomy. 5. Left rotator cuff surgery. ALLERGIES: PLEASE SEE EMR. MEDICATIONS: Please see medication list. SOCIAL HISTORY: Smokes 1 pack a day for the last 60 years. No alcohol or illicit drugs. PAST SURGICAL HISTORY: Pertinent for mother with heart disease. PHYSICAL EXAMINATION: VITAL SIGNS: Temperature 96.9 degrees, pulse 106, respiratory rate 20, blood pressure 115/58, oxygen saturation 94% on room air. GENERAL: Elderly woman, in no acute distress. Awake and alert. HEENT: Normocephalic and atraumatic. Pupils equal. No scleral icterus. NECK: Supple. No thyroid or cervical lymphadenopathy. No carotid bruits. LUNGS: Clear to auscultation bilaterally. No wheezes or crackles. CARDIOVASCULAR: Normal rate and regular rhythm. No murmur. Normal S1 and S2. ABDOMEN: Soft, nontender. EXTREMITIES: No edema. NEUROLOGIC: Nonfocal exam. LABORATORY DATA: Sodium 132, potassium 4.6, chloride 98, CO2 of 25, BUN 22, creatinine 0.98. Troponin 0.060. WBC 20.02, hemoglobin 10.6, hematocrit 33.9, and platelets 226. EKG, normal sinus rhythm. ST and T-wave abnormality, consider lateral ischemia. Chest x-ray, hyperinflated lungs, correlate for obstructive lung disease, findings suggestive of increased pulmonary arterial pressure, which can be assessed with obstructive lung disease. IMPRESSION: 1. Sepsis, suspect secondary to colitis. 2. Urinary tract infection. 3. Coronary artery disease with recent cardiac catheterization revealing heavily diseased LAD, patent SVG to diagonal, and patent SVG to RCA with LOCK MASTER of the RCA and circumflex. 4. Reported congestive heart failure. 5. Infrarenal abdominal aortic aneurysm, 4.7 cm. 6. Hydronephrosis. 7. Chronic obstructive pulmonary disease. 8. Hypertension. 9. Diabetes mellitus. 10. Hyperlipidemia. 11. Tobacco use. PLAN: We will obtain echocardiogram. IV antibiotics per primary service. Monitor volume status closely. Continue home cardiac medications. Blood pressure is stable. Thank you for this consult. We will continue to follow. Monika Rodriguez MD ABS/MODL /[id number]
[2018-11-12] MEDS: PANTOPRAZOL 40MG/SOD CHL 0.9% 50 ML IV SCH ×5 (05:00→21:06)
[2018-11-12] MEDS: METRONIDAZOLE 500MG/NS 100ML 100 ML IV SCH ×4 (05:24→18:44)
[2018-11-12 06:18] LABS: BASOPHILS # (AUTO) 0.1 (0.0-0.1); BASOPHILS % 0.4 % (0.0-1.0); EOSINOPHILS # (AUTO) 0.1 (0.0-0.4); EOSINOPHILS % 0.4 % (0.0-6.0); HEMATOCRIT 31.1 % (34.2-44.1); HEMOGLOBIN 9.7 g/dL (12.0-16.0); LYMPHOCYTES # (AUTO) 2.5 (1.0-3.2); LYMPHOCYTES % 17.3 % (18.0-39.1); MEAN CORPUSCULAR HEMOGLOBIN 27.9 pg (28-32); MEAN CORPUSCULAR HGB CONC 31.2 g/dL (31-35); MEAN CORPUSCULAR VOLUME 89.4 fL (81-99); MONOCYTES # (AUTO) 1.2 (0.2-0.8); MONOCYTES % 8.4 % (4.4-11.3); NEUTROPHILS # (AUTO) 10.5 (2.1-6.9); NEUTROPHILS % 71.7 % (38.7-80.0); PLATELET COUNT 222 x10e3/uL (140-360); RED BLOOD COUNT 3.48 x10e6/uL (3.6-5.1); RED CELL DISTRIBUTION WIDTH 14.8 % (11.7-14.4)
[2018-11-12 06:44] LABS: ANION GAP 13.4 mmol/L (8-16); BLOOD UREA NITROGEN 20 mg/dL (7-26); BUN/CREATININE RATIO 23 (6-25); CALCIUM 9.2 mg/dL (8.4-10.2); CARBON DIOXIDE 24 mmol/L (22-29); CHLORIDE 99 mmol/L (98-107); CREATININE, SERUM 0.87 mg/dL (0.57-1.11); EST GLOMERULAR FILTRATION RATE > 60 ML/MIN (60-); GLUCOSE 127 mg/dL (74-118); PHOSPHORUS 2.7 MG/DL (2.3-4.7); POTASSIUM 4.4 mmol/L (3.5-5.1); SODIUM 132 mmol/L (136-145)
--- NOTE | 2018-11-12 07:04 | NUR ---
RECEIVED PATIENT SITTING UP IN CHAIR, NO ACUTE DISTRESS NOTED. NO S/S OF PAIN NOTED AT THIS TIME. CALL LIGHT WITHIN REACH. BED IN THE LOWEST POSITION.
[2018-11-12 07:30] LABS: FERRITIN 101.87 ng/mL (4.63-204.00)
[2018-11-12] MEDS: INSULIN REGULAR, HUMAN 100 UNIT/1 ML 3ML VIAL SQ SCH ×4 (07:30→21:00)
[2018-11-12 07:47] LABS: FOLATE 13.2 ng/mL (7.0-15.4)
[2018-11-12] MEDS: METOCLOPRAMIDE HCL 10 MG TAB PO SCH ×2 (09:35→17:55)
[2018-11-12] MEDS: ASPIRIN 325 MG TAB PO SCH (09:36)
[2018-11-12] MEDS: ATORVASTATIN 20 MG TAB PO SCH (09:36)
[2018-11-12] MEDS: CILOSTAZOL 100 MG TAB PO SCH ×2 (09:37→17:56)
[2018-11-12] MEDS: GABAPENTIN 300 MG CAP PO SCH ×2 (09:37→17:56)
[2018-11-12] MEDS: METOPROLOL TARTRATE 25 MG TAB PO SCH ×2 (09:37→17:56)
[2018-11-12] MEDS: MONTELUKAST SODIUM 10 MG TAB PO SCH (09:37)
--- NOTE | 2018-11-12 10:57 | NUR ---
NOTIFIED DR. SALGADO OF IRON LEVEL OF 18 WHEN ROUNDING ON PATIENT. NO NEW ORDERS RECEIVED.
--- NOTE | 2018-11-12 11:27 | NUR ---
[facility] PHYSICIAN: Ryann Bonilla MD DATE OF ENCOUNTER 11/12/18 SUBJECTIVE: iron low by report ate well RA fio2 less abd pain appreciate input PPI iv off iVF REVIEW OF SYSTEMS: no headaches, no rash OBJECTIVE: VITAL SIGNS: vital signs noted and reviewed per the chart record. GENERAL: NAD, calm in bed. HEENT: Normocephalic and atraumatic. NECK: Supple. Throat midline. LUNGS: Bilateral air entry decreased. no rhonchi. kyphosis CARDIOVASCULAR: S1, S2. No murmurs, rubs, or gallops. ABDOMEN: Soft , less discomfort at lower quadrants. hernia EXTREMITIES: No edema. no cyanosis INTEGUMENT: No rash. No purpura. LABORATORY DATA: 4.4 k, cr .87 , wbc 14.6, 31 hct, plt 222. IMPRESSION AND PLAN: 1. Leukocytosis, treat as sepsis. More likely colitis. Cannot rule out urinary tract infection with multiple abnormalities. 2. Abdominal pain, lower quadrants. Ventral hernia contributive possibly 3. Hydronephrosis. 4. Multiple nephrolithiasis. 5. Infrarenal abdominal aortic aneurysm. 6. Chronic smoker. 7. Obstructive sleep apnea on nocturnal oxygen. 8. Chronic obstructive pulmonary disease. 9. Kyphosis. 10. Coronary artery disease. hx CABG 11. Diabetes. 12. Chronic kidney disease. 13. Congestive heart failure. 14. Hypertension. 15. Baseline debility from pain/arthritis 16. Anemia. Follow up with for hydronephrosis -US renal today GI consult + Surgical consults appreciated. -continue antibiotics -EGD likely tomorrow -PPI IV drip patient better, start diet repeat CBC to resolution review iron studies Thank you very much, Dr. Green, for allowing Dr. Bonilla and I had the chance to participate in the care of Ms. Jacob. Please call for questions.
--- NOTE | 2018-11-12 11:28 | NUR ---
EDUCATED ABOUT IMM, SIGNED, FILED IN CHART, WITH COPY LEFT WITH FAMILY AT BEDSIDE.
--- NOTE | 2018-11-12 12:04 | Diagnostic Imaging Report ---
Renal ultrasound, 11/12/2018. History: Kidney stones. Comparison: CT abdomen 11/10/2018. Discussion: Transverse and longitudinal images of the kidneys were obtained demonstrating normal renal sizes and echogenicities. Mild hydronephrosis is noted on the right. A 4 mm echogenic focus is seen in the medial aspect of the right kidney. There is no evidence of hydronephrosis, mass, or renal calculus on the left. The right kidney measures 10.7 cm and the left kidney measures 10.3 cm in length. The urinary bladder is unremarkable. Bladder volume measures 89 mL. There is no evidence of free fluid. IMPRESSION: Right nephrolithiasis and mild right hydronephrosis similar in appearance to prior CT. Otherwise unremarkable exam. Signed by: Mark Lua on 11/12/2018 12:01 PM
[2018-11-12] MEDS: LEVOFLOXACIN 500MG/D5W 100ML 100 ML IV SCH (17:50)
[2018-11-12] MEDS: DOCUSATE SODIUM 100 MG CAP PO SCH (17:55)
[2018-11-12] MEDS: FERROUS SULFATE 325 MG TAB PO SCH (17:56)
--- NOTE | 2018-11-12 19:37 | NUR ---
REPORT GIVEN TO ONCOMING NURSE. WALKING ROUNDS DONE. PATIENT IS SITTING UP IN BED. NO ACUTE DISTRESS NOTED. CALL LIGHT WITHIN REACH. BED IN THE LOWEST POSITION.
--- NOTE | 2018-11-12 20:17 | NUR ---
RECEIVED PT IN BED AOX3 .RESPIRATIONS ARE EVEN AND UNLABORED .FAMILY AT THE BEDSIDE .DENIES PAIN .CALL LIGHT WITH IN REACH .CONTINUE TO MONITOR
[2018-11-13] VITALS (8 sets, daily range): BP systolic 110–150; BP diastolic 52–65
--- NOTE | 2018-11-13 02:00 | Progress Note ---
DATE: 11/12/2018 Cardiology Progress Note SUBJECTIVE: The patient denies chest pain or shortness of breath. OBJECTIVE: VITAL SIGNS: Temperature 98 degrees, pulse 91, respiratory rate 20, blood pressure 116/59, and oxygen saturation 95% on room air. GENERAL: Awake, alert, in no acute distress. LUNGS: Clear to auscultation bilaterally. No wheezes or crackles. CARDIOVASCULAR: Normal rate, regular rhythm. No murmur. Normal S1, S2. ABDOMEN: Soft, nontender. EXTREMITIES: No edema. CARDIAC MEDICATIONS: 1. Metoprolol tartrate 25 mg p.o. b.i.d. 2. Aspirin 325 mg p.o. daily. 3. Atorvastatin 80 mg p.o. at bedtime. LABORATORY DATA: WBC 14.64, hemoglobin 9.7, hematocrit 31.1, platelets 222. Sodium 132, potassium 4.4, chloride 99, CO2 of 24, BUN 20, creatinine 0.87. TELEMETRY: Normal sinus rhythm. IMPRESSION: 1. Sepsis, suspect secondary to colitis. 2. Urinary tract infection. 3. Coronary artery disease with recent cardiac catheterization revealing heavily diseased left anterior descending, patent SVG to diagonal, ectatic, but patent SVG to RCA with FRUIT GROWER of the RCA and circumflex. 4. Severe systolic heart failure, chronic. 5. Infrarenal abdominal aortic aneurysm 4.7 cm. 6. Hydronephrosis. 7. Chronic obstructive pulmonary disease. 8. Hypertension. 9. Diabetes mellitus. 10. Hyperlipidemia. 11. Tobacco abuse. RECOMMENDATIONS: Once the patient recovers from her sepsis, she will need to be started on diuretics given her shortness of breath on presentation. In the meantime, antibiotics per primary service. If blood pressure improves, she will need to be started on losartan as well as metoprolol succinate. In the meantime, continue current cardiac medications including aspirin and statin. Monitor the patient closely on telemetry. Thank you for this consult. We will continue to follow. Monika Rodriguez MD ABS/MODL /[id number]
[2018-11-13] MEDS: PANTOPRAZOL 40MG/SOD CHL 0.9% 50 ML IV SCH (02:26)
[2018-11-13] MEDS: ACETAMINOPHEN 325 MG TAB PO PRN (02:29)
[2018-11-13 06:09] LABS: BASOPHILS % 0.4 % (0.0-1.0); EOSINOPHILS # (AUTO) 0.1 (0.0-0.4); EOSINOPHILS % 0.6 % (0.0-6.0); HEMATOCRIT 30.5 % (34.2-44.1); HEMOGLOBIN 9.4 g/dL (12.0-16.0); LYMPHOCYTES # (AUTO) 2.5 (1.0-3.2); LYMPHOCYTES % 22.5 % (18.0-39.1); MEAN CORPUSCULAR HEMOGLOBIN 27.3 pg (28-32); MEAN CORPUSCULAR HGB CONC 30.8 g/dL (31-35); MEAN CORPUSCULAR VOLUME 88.7 fL (81-99); MONOCYTES # (AUTO) 1.1 (0.2-0.8); MONOCYTES % 10.3 % (4.4-11.3); NEUTROPHILS # (AUTO) 7.2 (2.1-6.9); NEUTROPHILS % 65.7 % (38.7-80.0); PLATELET COUNT 225 x10e3/uL (140-360); RED BLOOD COUNT 3.44 x10e6/uL (3.6-5.1); RED CELL DISTRIBUTION WIDTH 14.7 % (11.7-14.4)
[2018-11-13] MEDS: METRONIDAZOLE 500MG/NS 100ML 100 ML IV SCH ×4 (06:28→17:12)
[2018-11-13] MEDS ORDERED: IRON SUCROSE 100 MG in SODIUM CHLORIDE 0.9% 100 ML 100 ML IV SCH (07:00)
--- NOTE | 2018-11-13 07:31 | NUR ---
REPORT GIVEN TO THE ONCOMING NURSE
[2018-11-13] MEDS: INSULIN REGULAR, HUMAN 100 UNIT/1 ML 3ML VIAL SQ SCH ×4 (08:00→21:00)
--- NOTE | 2018-11-13 08:07 | NUR ---
Received patient, assessment completed. Patient sitting up in bed, AOx3, no signs of distress. Call light placed within reach, bed locked and in low position. Patient instructed to call for assistance if needed. Clear liquids for breakfast, NPO for lunch in preparation of EGD. Plan to collect stool specimen for occult blood. Will continue to monitor.
[2018-11-13] MEDS: IRON SUCROSE 100 MG in SODIUM CHLORIDE 0.9% 100 ML 100 ML IV SCH (09:30)
[2018-11-13] MEDS: METOCLOPRAMIDE HCL 10 MG TAB PO SCH ×2 (09:30→16:56)
[2018-11-13] MEDS: FERROUS SULFATE 325 MG TAB PO SCH ×2 (09:30→16:56)
[2018-11-13] MEDS: PANTOPRAZOLE 40 MG 10ML VIAL IV SCH ×2 (09:30→16:56)
[2018-11-13] MEDS: CYANOCOBALAMIN 1,000 MCG TAB PO SCH (09:31)
[2018-11-13] MEDS: GABAPENTIN 300 MG CAP PO SCH ×2 (09:31→16:56)
[2018-11-13] MEDS: ASPIRIN 325 MG TAB PO SCH (09:31)
[2018-11-13] MEDS: DOCUSATE SODIUM 100 MG CAP PO SCH ×2 (09:31→16:56)
[2018-11-13] MEDS: MONTELUKAST SODIUM 10 MG TAB PO SCH (09:31)
[2018-11-13] MEDS: CILOSTAZOL 100 MG TAB PO SCH ×2 (09:31→16:56)
[2018-11-13] MEDS: METOPROLOL TARTRATE 25 MG TAB PO SCH (09:31)
--- NOTE | 2018-11-13 14:15 | NUR ---
Patient transferred off the unit for EGD procedure.
[2018-11-13] MEDS: LEVOFLOXACIN 500MG/D5W 100ML 100 ML IV SCH (16:08)
--- NOTE | 2018-11-13 16:15 | Progress Note ---
DATE: 11/13/2018 Cardiology Progress Note SUBJECTIVE: The patient denies chest pain or shortness of breath. OBJECTIVE: VITAL SIGNS: Temperature 95.7 degrees, pulse 99, respiratory rate 17, blood pressure 135/63, and oxygen saturation 95% on room air. GENERAL: Awake, alert, in no distress. LUNGS: Clear to auscultation bilaterally. No wheeze or crackles. CARDIOVASCULAR: Normal rate. Regular rhythm. No murmur. Normal S1, S2. ABDOMEN: Soft and nontender. EXTREMITIES: No edema. CARDIAC MEDICATIONS: 1. Metoprolol 25 mg p.o. b.i.d. 2. Cilostazol 50 mg p.o. b.i.d. 3. Aspirin 325 mg p.o. daily. 4. Atorvastatin 80 mg p.o. at bedtime. LABORATORY DATA: WBC 10.95, hemoglobin 9.4, hematocrit 30.5, platelets 225. TELEMETRY: Normal sinus rhythm. IMPRESSION: 1. Sepsis, suspect secondary to colitis. 2. Urinary tract infection. 3. Coronary artery disease with recent cardiac catheterization revealing heavily diseased left anterior descending artery, patent SVG to diagonal and ectatic, but patent SVG to RCA with BIOMEDICAL PHOTOGRAPHER of the RCA and circumflex. 4. Severe systolic heart failure, chronic. 5. Infrarenal abdominal aortic aneurysm 4.7 cm. 6. Hydronephrosis. 7. Chronic obstructive pulmonary disease. 8. Hypertension. 9. Diabetes mellitus. 10. Hyperlipidemia. 11. Tobacco abuse. RECOMMENDATIONS: Change metoprolol tartrate to metoprolol succinate, given her severe systolic heart failure. As the patient's blood pressure has stabilized, we will start her on diuretics. If blood pressure remains stable, she will need to be started on losartan prior to discharge. Antibiotics per primary service. Continue current cardiac medications otherwise. Monitor the patient closely on telemetry. Thank you for this consult. We will continue to follow. Monika Rodriguez MD [facility]/MODL /[id number]
--- NOTE | 2018-11-13 16:45 | Operative Report ---
DATE OF PROCEDURE: 11/13/2018 SURGEON: Uriah Pollard MD PROCEDURE: EGD with fulguration of gastric AVM with APC probe and biopsies. ADDITIONAL REFERRING PHYSICIAN: Dr. Green at [facility]. INDICATIONS FOR PROCEDURE: Anemia, upper abdominal pain, history of melena. MEDICATION: The patient was done under MAC, please see anesthesiologist's note. PROCEDURE IN DETAIL: With the patient in left lateral decubitus position, the flexible fiberoptic Olympus gastroscope was introduced into the esophagus under direct visualization without any difficulty. There was some patchy erythema noted in distal esophagus. The scope was then advanced with ease into the stomach traversing a small sliding hiatal hernia. Mucosa overlying the antrum and the body revealed some patchy erythema and [id number]-yieonicy edema, and biopsies were obtained and sent to stain for H. pylori. An AVM was noted in the antrum and that was fulgurated with APC probe with excellent hemostasis. The pylorus was intubated with ease and the scope was advanced all the way to the second portion of the duodenum. The scope was then withdrawn slowly mucosa overlying the proximal second portion and duodenal bulb appeared to be within normal limits. The scope was then withdrawn back into the stomach and retroflexed mucosa overlying the fundus and cardia appeared to be within normal limits. The scope was then straightened out, it was subsequently withdrawn. The patient tolerated the procedure well. IMPRESSION: 1. Distal esophagitis, mild. 2. Small sliding hiatal hernia. 3. Gastritis, biopsied, biopsies sent to stain for H. pylori. 4. Arteriovenous malformation, antrum, fulgurated with the APC probe. PLAN: Follow up histology. Continue current therapy. Uriah Pollard MD [facility] [place]/MODL /[id number] cc: MD Dr. Bob [facility]Co[facility] Ryann Bonilla MD
--- NOTE | 2018-11-13 16:55 | NUR ---
Patient returned to unit from EGD procedure. Received report from PACU. Patient doing well. Will continue to monitor.
[2018-11-13] MEDS: METOPROLOL SUCCINATE 25 MG TAB XL PO SCH (16:56)
[2018-11-13] MEDS ORDERED: LIDOCAINE HCL 2% LOCAL INJ 5 ML SDV VIAL INJ ONE (18:10)
[2018-11-13] MEDS ORDERED: PROPOFOL IV EMULSION 10 MG/ML 20 ML VIAL ONE (18:10)
--- NOTE | 2018-11-13 19:11 | NUR ---
Handoff report given to night nurse. Patient sitting in chair, AOx3. No signs of distress. Patient stated that she would like to go home right. welder 2nd shift nurse notified and aware.
--- NOTE | 2018-11-13 19:35 | NUR ---
RECEIVE DPT IN SITTING ON THE CHAIR AOX3 .C/O HEADACHE PT HAD EGD SHOWS GASTRITIS ,ULCER AND HAITAL HERNIA .MEDICATED THE PT WITH TYLENOL .CONTINUE TO MONITOR
[2018-11-13] MEDS: FUROSEMIDE INJ 10 MG/ML 4 ML VIAL IV SCH (20:12)
[2018-11-13] MEDS ORDERED: ATORVASTATIN 40 MG TAB PO SCH (21:00)
[2018-11-14] VITALS: BP_SYST 145; BP_SYST 82; BP_DIAS 44; BP_DIAS 69
[2018-11-14] MEDS ORDERED: SODIUM CHLORIDE 0.9% 250ML 250 ML ONE (01:35)
--- NOTE | 2018-11-14 02:21 | NUR ---
[facility] PHYSICIAN: Ryann Bonilla MD DATE OF ENCOUNTER 11/13/18 SUBJECTIVE: RA fio2 eats majority of meal walking mildly weak only REVIEW OF SYSTEMS: no headaches, no rash OBJECTIVE: VITAL SIGNS: vital signs noted and reviewed per the chart record. GENERAL: NAD, calm in bed. HEENT: Normocephalic and atraumatic. NECK: Supple. Throat midline. LUNGS: Bilateral air entry decreased. no rhonchi. kyphosis CARDIOVASCULAR: S1, S2. No murmurs, rubs, or gallops. ABDOMEN: Soft , less discomfort at lower quadrants. hernia EXTREMITIES: No edema. no cyanosis INTEGUMENT: No rash. No purpura. LABORATORY DATA: wbc 10.9. 31 hct. 4.4 k, cr 0.87. 24 hco3 IMPRESSION AND PLAN: 1. Leukocytosis, treat as sepsis. More likely colitis. much less likely urinary tract infection. 2. Abdominal pain, lower quadrants. Ventral hernia contributive possibly 3. Hydronephrosis. 4. Multiple nephrolithiasis. 5. Infrarenal abdominal aortic aneurysm. 6. Chronic smoker. 7. Obstructive sleep apnea on nocturnal oxygen. 8. Chronic obstructive pulmonary disease. 9. Kyphosis. 10. Coronary artery disease. hx CABG 11. Diabetes. 12. Chronic kidney disease. 13. Congestive heart failure. 14. Hypertension. 15. Baseline debility from pain/arthritis 16. Anemia. Appreciate evaluation, will need outpatient follow up and possible ureteral assessment when better GI consult + Surgical consults appreciated. -continue antibiotics -EGD today -PPI IV drip -serial abd exams patient better, restart diet after EGD PO iron, b12 Thank you very much, Dr. Green, for allowing Dr. Bonilla and I had the chance to participate in the care of Ms. Jacob. Please call for questions.
[2018-11-14] MEDS ORDERED: FLAGYL500 MG PO (02:31)
[2018-11-14] MEDS ORDERED: LASIX40 MG PO (02:31)
[2018-11-14] MEDS ORDERED: COLACE100 MG PO (02:31)
[2018-11-14] MEDS ORDERED: FERROUS SULFAT325 MG PO (02:31)
[2018-11-14] MEDS ORDERED: LISINOPRIL5 MG PO (02:31)
[2018-11-14] MEDS ORDERED: VITAMIN B-121000 MCG PO (02:31)
[2018-11-14] MEDS ORDERED: TOPROL XL25 MG PO (02:31)
[2018-11-14] MEDS ORDERED: LEVAQUIN500 MG PO (02:31)
[2018-11-14] MEDS ORDERED: PANTOPRAZOLE SO40 MG PO (02:34)
[2018-11-14] MEDS ORDERED: FUROSEMIDE20 MG PO (02:34)
[2018-11-14 04:00] VITALS: BP 120/56
[2018-11-14] MEDS: METRONIDAZOLE 500MG/NS 100ML 100 ML IV SCH ×3 (05:27→12:00)
--- NOTE | 2018-11-14 06:24 | NUR ---
PT RESTED DURING THE NIGHT .C/O HEAD ACHE MEDICATED WITH TYLENOL.CALL LIGHT WITH IN REACH .CONTINUE TO MONITOR
--- NOTE | 2018-11-14 07:11 | NUR ---
BEDSIDE REPORT GIVEN TO THE ONCOMING NURSE
[2018-11-14] MEDS: ASPIRIN 325 MG TAB PO SCH (08:16)
[2018-11-14] MEDS: DOCUSATE SODIUM 100 MG CAP PO SCH (08:16)
[2018-11-14] MEDS: FERROUS SULFATE 325 MG TAB PO SCH (08:16)
[2018-11-14] MEDS: IRON SUCROSE 100 MG in SODIUM CHLORIDE 0.9% 100 ML 100 ML IV SCH (08:16)
[2018-11-14] MEDS: GABAPENTIN 300 MG CAP PO SCH (08:16)
[2018-11-14] MEDS: PANTOPRAZOLE 40 MG 10ML VIAL IV SCH (08:16)
[2018-11-14] MEDS: FUROSEMIDE INJ 10 MG/ML 4 ML VIAL IV SCH (08:16)
[2018-11-14] MEDS: MONTELUKAST SODIUM 10 MG TAB PO SCH (08:16)
[2018-11-14] MEDS: CILOSTAZOL 100 MG TAB PO SCH (08:16)
[2018-11-14 08:17] VITALS: BP 136/87
[2018-11-14] MEDS: METOCLOPRAMIDE HCL 10 MG TAB PO SCH (08:21)
[2018-11-14] MEDS: METOPROLOL SUCCINATE 25 MG TAB XL PO SCH (08:21)
[2018-11-14] MEDS: CYANOCOBALAMIN 1,000 MCG TAB PO SCH (08:21)
[2018-11-14 08:28] VITALS: BP 136/87
[2018-11-14] MEDS: INSULIN REGULAR, HUMAN 100 UNIT/1 ML 3ML VIAL SQ SCH (08:30)
--- NOTE | 2018-11-14 11:27 | NUR ---
EDUCATED ABOUT IMM SIGNED FILED IN CHART AND LEFT COPY WITH PT BEDSIDE WITH CARD FOR ANY FURTHER QUESTIONS
[2018-11-14 11:50] VITALS: BP 91/51
[2018-11-14 12:24] VITALS: BP 132/65
[2018-11-14] MEDS ORDERED: ONDANSETRON HCL 4 MG ORAL DISINTEGRATING TAB PO PRN (13:45)
--- NOTE | 2018-11-14 15:30 | NUR ---
pt discharged home iv dcd without redness or swelling,prescriptions and instructions noted,transported to auto via w/c
--- NOTE | 2018-11-14 19:57 | Progress Note ---
DATE: 11/14/2018 Cardiology Progress Note SUBJECTIVE: The patient denies chest pain or shortness of breath. OBJECTIVE: VITAL SIGNS: Temperature 96.4 degrees, pulse 103, respiratory rate 19, blood pressure 91/51, oxygen saturation 95% on room air. GENERAL: Awake, alert, no acute distress. LUNGS: Clear to auscultation bilaterally. No wheeze or crackles. CARDIOVASCULAR: Normal rate regular rhythm. No murmur. Normal S1, S2. Soft and nontender. EXTREMITIES: No edema. CARDIAC MEDICATIONS: Metoprolol succinate 25 mg p.o. b.i.d., furosemide 40 mg IV q.12 hours, aspirin 325 mg p.o. daily, cilostazol 50 mg p.o. b.i.d., atorvastatin 80 mg p.o. at bedtime. LABORATORY DATA: None today. TELEMETRY: Sinus tachycardia. IMPRESSION: 1. Sepsis is suspected secondary to colitis. 2. Urinary tract infection. 3. Coronary artery disease, recent cardiac catheterization revealing heavily diseased left anterior descending, patent saphenous vein graft to diagonal and ectatic, but patent saphenous vein graft to right coronary artery with CT of the right coronary artery and circumflex. 4. Severe systolic heart failure, chronic. 5. Infrarenal abdominal aortic aneurysm, 4.7 cm. 6. Hydronephrosis. 7. Chronic obstructive pulmonary disease. 8. Hypertension. 9. Diabetes mellitus. 10. Hyperlipidemia. 11. Tobacco abuse. RECOMMENDATIONS: Continue metoprolol succinate given her severe systolic heart failure. If blood pressure permits, add lisinopril, currently blood pressure with somewhat marginal with systolic blood pressures as low as the 90s. The patient was instructed on the importance of close followup with her outpatient international controller for optimal medical therapy for titration of her heart failure medications. Continue current cardiac medications otherwise. Antibiotics per primary service. Monitor the patient closely on telemetry while admitted. Thank you for this consult. We will continue to follow. Monika Rodriguez MD [facility]/MODL /[id number]
--- NOTE | 2018-11-14 21:51 | NUR ---
discharge [id number]
--- NOTE | 2018-11-15 05:13 | Discharge Summary ---
PRIMARY CARE DOCTOR: Dr. Bob Green. HOSPITAL DOCTOR: Ryann Bonilla MD. PRIMARY DIAGNOSIS: Sepsis, more likely colitis. DISCHARGE DIAGNOSIS: Sepsis, more likely colitis. HOSPITAL COURSE: The patient was admitted. White blood count was 41.9. Sodium 128. Low blood pressure 90 systolic upon admission. The patient was feeling very weak with abdominal pain. Creatinine 1.2. CT abdomen and pelvis showed mild hydronephrosis, nephrolithiasis, dilated ureter, mild to moderate amount, possible stricture at UP junction, some fat stranding in the pericecal region and mild colonic wall thickening. The patient was admitted. She was seen by surgeon and , thought colitis most likely. She was treated aggressively with antibiotics and she recovered very easily by day #1 on medical management, she was being better. However, white blood count after 3 normalized. expect outpatient followup for the nephrolithiasis, hydronephrosis and hydroureter. The patient with anemia and fecal occult blood testing positive. The patient went for endoscopy, EGD which demonstrated distal esophagitis, small sliding hiatal hernia, gastritis, which was biopsied, AV malformation in antrum, which was fulgurated with APC probe. At this point, the patient seemed to be stable when she was allowed for outpatient followup. She was given copies of her labs, given the complex clinical condition that were discovered here. FOLLOW UP: Follow up with Dr. Green at [facility]. MEDICATIONS AT DISCHARGE: See list for details. ACTIVITY: As tolerated. DIET: GI bland as well as cardiac diet. Greater than 30 minutes spent in discharge care and coordination on this day. MD VÍCTOR Walker/NIDHIL /[id number] MTDJun
== END 2018-11-14 15:26 | disposition home or self-care (01) | DRG 872 ==
LOC: ER 14:11 → ERHOLD 15:17 → MED/SURG3 18:11
PROVIDERS: ADMIT Internal Medicine Critical Care Medicine; ATTEND Internal Medicine Critical Care Medicine
PROC: 0D578ZZ Destruction of Stomach, Pylorus, Via Natural or Artificial Opening Endoscopic (ICD-10-PCS; principal; 2018-11-13 15:05)
PROC: 0DB78ZX Excision of Stomach, Pylorus, Via Natural or Artificial Opening Endoscopic, Diagnostic (ICD-10-PCS; 2018-11-13 15:05)
DX: A41.9 Sepsis, unspecified organism (principal); N13.30 Unspecified hydronephrosis; N39.0 Urinary tract infection, site not specified; I50.22 Chronic systolic (congestive) heart failure; K52.9 Noninfective gastroenteritis and colitis, unspecified; J44.9 Chronic obstructive pulmonary disease, unspecified; E11.9 Type 2 diabetes mellitus without complications; Z72.0 Tobacco use; I95.9 Hypotension, unspecified; Q27.33 Arteriovenous malformation of digestive system vessel
CPT/HCPCS: 36415; 43239; 43255; 71045; 74176; 76770; 80048; 80053; 81001; 82150; 82270; 82550; 82553; 82607; 82728; 82746; 82948; 83540; 83690; 83735; 83880; 84100; 84443; 84466; 84484; 85025; 85045; 85610; 85730; 86850; 86900; 87040; 87086; 88305; 88312; 93005; 93306; 94640; 96361; 99285; J1756; J1817; J1940; J1956; J2001; J2270; J2405; J2930; J7030; J7050